=== PATIENT | male | born 1970 | race Caucasian/White ===

== ENCOUNTER 2017-09-11 07:46 | Emergency (ER) | payer BC, OTHER ==
[2017-09-11] MEDS ORDERED: Sodium Chloride 0.9% 10 ML Syringe FLUSH PRN ×2 (08:20→08:39)
[2017-09-11] MEDS ORDERED: Albuterol/Ipratropium 3.0-0.5 MG/3 ML Neb Soln NEB ONE (08:21)
[2017-09-11] MEDS ORDERED: Codeine/Promethazine 10-6.25 MG/5 ML Syrup 5 ML UD Cup PO ONE (08:22)
[2017-09-11] MEDS ORDERED: Iopamidol 755 Mg/ML 100 ML Bottle IVPUSH ONE (08:39)
[2017-09-11] MEDS ORDERED: Iopamidol 755 MG/ML 50 ML Bottle IVPUSH ONE (08:39)
[2017-09-11] MEDS ORDERED: Sodium Chloride 0.9% 100 ML IV SCH (08:45)
[2017-09-11] MEDS ORDERED: HYDROmorphone 0.5 MG/0.5 ML Syringe IVPUSH ONE (08:55)
--- NOTE | 2017-09-11 09:04 | EDM.PDOC ---
ED HPI GENERAL MEDICAL PROBLEM - General Chief Complaint: Respiratory Problem Stated Complaint: SOB,COUGHING UP BLOOD Time Seen by Provider: 09/11/17 08:03 Source of Information: Reports: Patient History Limitations: Reports: No Limitations - History of Present Illness INITIAL COMMENTS - FREE TEXT/NARRATIVE: The patient presents with a cough and chest pain. He says this all started on Monday after he was sanding dry wall. He started coughing and now he is coughing up blood in his sputum. He also has a fever and chills. He also has pain to his lower chest and upper abdomen. Coughing makes it worse. He denies pain or edema in his legs. He has no history of DVT or PE. He does have a history of bronchitis as a child and he will get pneumonia at lest 2 times per year. He has no history of asthma or COPD. The patient does not smoke. He has shortness of breath. Onset: Gradual Duration: Day(s): (3) Location: Reports: Chest Quality: Reports: Pressure (and tightness) Severity: Severe Improves with: Reports: Immobilization Worsens with: Reports: Breathing (and coughing) Context: Reports: Activity (This started after sanding drywall) Associated Symptoms: Reports: Chest Pain, Cough, cough w sputum, Fever/Chills, Shortness of Breath. Denies: Nausea/Vomiting Bilateral Chest Pain Score (Numeric/FACES): 7 - Related Data Allergies Allergy/AdvReac Type Severity Reaction Status Date / Time lisinopril Allergy Tachycardia Verified 09/11/17 07:54 metoclopramide [From Reglan] Allergy Anxiety Verified 09/11/17 07:54 Home Meds: Home Meds ALPRAZolam [Xanax] 0.5 mg PO BID 09/11/17 [History] Albuterol [Proair HFA] 2 puff INH Q6H PRN 09/11/17 [History] Codeine/Promethazine [Phenergan with Codeine] 5 - 10 ml PO Q6HR PRN #240 ml [Rx] Hydrocodone/Acetaminophen [Hydrocodon-Acetaminophen 5-325] 1 - 2 each PO Q6HR PRN #10 tablet 09/11/17 [Rx] Insulin Aspart [NovoLOG] 5 unit SQ TID PRN 09/11/17 [History] Metoprolol Succinate [Toprol XL] 25 mg PO DAILY 09/11/17 [History] Omeprazole 20 mg PO DAILY 09/11/17 [History] Oseltamivir [Tamiflu] 75 mg PO BID #10 cap 09/11/17 [Rx] Past Medical History - Past Health History Medical/Surgical History: Denies Medical/Surgical History HEENT History: Reports: Impaired Vision Other HEENT History: wears eyeglasses Cardiovascular History: Reports: High Cholesterol, Hypertension Respiratory History: Reports: Bronchitis, Recurrent, Pneumonia, Recurrent Gastrointestinal History: Reports: GERD Genitourinary History: Reports: Renal Calculus Musculoskeletal History: Reports: Back Pain, Chronic Other Musculoskeletal History: herniated disc, disc removed from neck Neurological History: Reports: Concussion, Head Trauma, Migraines Other Neuro History: x5, and skull fx Psychiatric History: Reports: Anxiety Endocrine/Metabolic History: Reports: Diabetes, Type II Other Endocrine/Metabolic History: borderline diabetic - Past Surgical History HEENT Surgical History: Reports: Tonsillectomy GI Surgical History: Reports: Colonoscopy, EGD, Hernia, Inguinal, Hernia Repair/ Other, Other (See Below) Other GI Surgeries/Procedures: polyps removed. Neurological Surgical History: Reports: Discectomy Social & Family History - Tobacco Use Smoking Status *Q: Never Smoker Years of Tobacco use: 27 Second Hand Smoke Exposure: No - Caffeine Use Caffeine Use: Reports: Soda - Recreational Drug Use Recreational Drug Use: No - Living Situation & Occupation Living situation: Reports: , with Family Occupation: Employed ED ROS GENERAL - Review of Systems Review Of Systems: See Below Constitutional: Reports: Fever, Chills, Malaise, Weakness, Fatigue HEENT: Reports: No Symptoms Respiratory: Reports: Shortness of Breath, Cough, Sputum Cardiovascular: Reports: Chest Pain Endocrine: Reports: No Symptoms GI/Abdominal: Reports: No Symptoms : Reports: No Symptoms Musculoskeletal: Reports: No Symptoms ED EXAM, GENERAL - Physical Exam Exam: See Below Exam Limited By: No Limitations General Appearance: Alert, No Apparent Distress Ears: Normal External Exam Nose: Normal Inspection Head: Atraumatic, Normocephalic Neck: Normal Inspection Respiratory/Chest: No Respiratory Distress, Wheezing (Mild) Cardiovascular: Regular Rate, Rhythm, No Edema, No Murmur GI/Abdominal: Soft, Non-Tender, No Organomegaly, No Mass Back Exam: Normal Inspection Extremities: Normal Inspection Neurological: Alert, Oriented, No Motor/Sensory Deficits Skin Exam: Warm, Dry EKG INTERPRETATION EKG Date: 09/11/17 Time: 07:58 Rhythm: NSR Rate (Beats/Min): 90 [place]: Normal P-Wave: Present QRS: Normal ST-T: Elevated (Normal early repol) QT: Normal Course - Vital Signs Last Recorded V/S: Last Vital Signs Temp 97.1 F 09/11/17 07:46 Pulse 96 09/11/17 07:46 Resp 20 09/11/17 07:46 BP 174/116 H 09/11/17 07:46 Pulse Ox 99 09/11/17 08:20 - Orders/Labs/Meds Orders: Active Orders 24 hr Category Date Time Status Cardiac Monitoring [RC] . DIRECTED Care 09/11/17 08:20 Active EKG Documentation Completion [RC] STAT Care 09/11/17 08:21 Active Oxygen Therapy [RC] PRN Care 09/11/17 08:20 Active Peripheral IV Care [RC] . DIRECTED Care 09/11/17 08:21 Active RT Aerosol Therapy [RC] ASDIRECTED Care 09/11/17 08:22 Active CULTURE SPUTUM + SMEAR [RM] Stat Lab 09/11/17 08:05 Received Sodium Chloride 0.9% [Normal Saline] 100 ml Med 09/11/17 08:45 Active IV ASDIRECTED Sodium Chloride 0.9% [Saline Flush] Med 09/11/17 08:20 Active 10 ml FLUSH ASDIRECTED PRN Sodium Chloride 0.9% [Saline Flush] Med 09/11/17 08:39 Active 10 ml FLUSH ONETIME PRN Peripheral IV Insertion Adult [OM.PC] Stat Oth 09/11/17 08:20 Ordered Medication Orders Sodium Chloride (Normal Saline) 100 mls @ 75 mls/hr IV ASDIRECTED LAURA Last Admin: 09/11/17 08:58 Dose: 75 mls/hr Sodium Chloride (Saline Flush) 10 ml FLUSH ASDIRECTED PRN PRN Reason: Keep Vein Open Last Admin: 09/11/17 07:56 Dose: 10 ml Sodium Chloride (Saline Flush) 10 ml FLUSH ONETIME PRN PRN Reason: IV FLUSH Last Admin: 09/11/17 08:58 Dose: 10 ml Labs: Laboratory Tests 09/11/17 09/11/17 Range/Units 07:56 07:56 WBC 3.98 L (4.23-9.07) K/mm3 RBC 5.65 (4.63-6.08) M/mm3 Hgb 17.0 (13.7-17.5) gm/L Hct 50.2 (40.1-51.0) % MCV 88.8 (79.0-92.2) fl MCH 30.1 (25.7-32.2) pg MCHC 33.9 (32.2-35.5) g/dl RDW Std Deviation 42.2 (35.1-43.9) fL Plt Count 265 (163-337) K/mm3 MPV 10.1 (9.4-12.3) fl Neut % (Auto) 38.1 (34.0-67.9) % Lymph % (Auto) 40.5 (21.8-53.1) % [place] % (Auto) 16.8 H (5.3-12.2) % Eos % (Auto) 3.8 (0.8-7.0) Baso % (Auto) 0.5 (0.1-1.2) % Neut # (Auto) 1.52 L (1.78-5.38) K/mm3 Lymph # (Auto) 1.61 (1.32-3.57) K/mm3 [place] # (Auto) 0.67 (0.30-0.82) K/mm3 Eos # (Auto) 0.15 (0.04-0.54) K/mm3 Baso # (Auto) 0.02 (0.01-0.08) K/mm3 Manual Slide Review Normal smear Sodium 140 (136-145) mEq/L Potassium 4.2 (3.5-5.1) mEq/L Chloride 104 (98-107) mEq/L Carbon Dioxide 24 (21-32) mEq/L Anion Gap 16.2 H (5-15) BUN 6 L (7-18) mg/dL Creatinine 0.9 (0.7-1.3) mg/dL Est Cr Clr Drug Dosing 108.15 mL/min Estimated GFR (MDRD) > 60 (>60) mL/min BUN/Creatinine Ratio 6.7 L (14-18) Glucose 176 H (74-106) mg/dL Calcium 8.7 (8.5-10.1) mg/dL Total Bilirubin 0.3 (0.2-1.0) mg/dL AST 29 (15-37) U/L ALT 49 (16-63) U/L Alkaline Phosphatase 99 (46-116) U/L Troponin I < 0.017 (0.00-0.056) ng/mL Total Protein 7.3 (6.4-8.2) g/dl Albumin 3.6 (3.4-5.0) g/dl Globulin 3.7 gm/dL Albumin/Globulin Ratio 1.0 (1-2) Meds: Medications Generic Name Dose Route Start Last Admin Trade Name Freq PRN Reason Stop Dose Admin Sodium Chloride 100 mls @ 75 mls/hr 09/11/17 08:45 09/11/17 08:58 Normal Saline IV 75 mls/hr ASDIRECTED LAURA Administration Sodium Chloride 10 ml 09/11/17 08:20 09/11/17 07:56 Saline Flush FLUSH 10 ml ASDIRECTED PRN Administration Keep Vein Open Sodium Chloride 10 ml 09/11/17 08:39 09/11/17 08:58 Saline Flush FLUSH 10 ml ONETIME PRN Administration IV FLUSH Discontinued Medications Generic Name Dose Route Start Last Admin Trade Name Freq PRN Reason Stop Dose Admin Albuterol/Ipratropium 3 ml 09/11/17 08:21 Duoneb 3.0-0.5 Mg/3 Ml NEB 09/11/17 08:22 ONETIME ONE Hydromorphone HCl 0.5 mg 09/11/17 08:55 09/11/17 09:05 Dilaudid IVPUSH 09/11/17 08:56 0.5 mg ONETIME ONE Administration Iopamidol 50 ml 09/11/17 08:39 09/11/17 09:05 Isovue-370 (76%) IVPUSH 09/11/17 08:40 50 ml ONETIME ONE Administration Iopamidol 100 ml 09/11/17 08:39 09/11/17 09:05 Isovue-370 (76%) IVPUSH 09/11/17 08:40 100 ml ONETIME ONE Administration Promethazine HCl/Codeine 10 ml 09/11/17 08:22 09/11/17 08:30 Phenergan With Codeine PO 09/11/17 08:23 10 ml ONETIME ONE Administration - Re-Assessments/Exams Free Text/Narrative Re-Assessment/Exam: 09/11/17 09:05 I ordered an IV saline lock, chest CT, labs, EKG, duoneb and phenergan with codeine for the cough. His EKG shows a NSR with normal early repol. The phenergan with codeine did not help his chest pain so I ordered some dilaudid 0.5mg IV. 09/11/17 09:59 His CBC and CMP look good. His troponin is negative. His CT shows slightly less than optimal opacification of the pulmonary arteries. No pulmonary embolism is seen within the main or segmental branches. Smaller subsegmental pulmonary emboli could be missed. Fatty infiltration within the liver. No additional abnormality is appreciated. He feels better. I will get him on some tamiflu and phenergan with codeine. I will discharge him home. Departure - Departure Time of Disposition: 10:05 Disposition: Home, Self-Care 01 Condition: Good Clinical Impression: Chest wall pain, Influenza A - Discharge Information Prescriptions: Codeine/Promethazine [Phenergan with Codeine] 5 - 10 ml PO Q6HR PRN #240 ml PRN Reason: Cough Hydrocodone/Acetaminophen [Hydrocodon-Acetaminophen 5-325] 1 - 2 each PO Q6HR PRN #10 tablet PRN Reason: Pain Oseltamivir [Tamiflu] 75 mg PO BID #10 cap Referrals: Marcos Roque Jr, MD [Primary Care Provider] - 1 Week Forms: ED Department Discharge Additional Instructions: Get some rest today. Take the tamiflu 2 times per day for 5 days. Use the phenergan with codeine for the cough. You can have 10mls every 6 hours. Take the hydrocodone as needed for the chest pain. Please return if you are worse. - My Orders Last 24 Hours: My Active Orders 09/11/17 08:05 CULTURE SPUTUM + SMEAR [RM] Stat 09/11/17 08:20 Cardiac Monitoring [RC] . DIRECTED Oxygen Therapy [RC] PRN Sodium Chloride 0.9% [Saline Flush] 10 ml FLUSH ASDIRECTED PRN Peripheral IV Insertion Adult [OM.PC] Stat 09/11/17 08:21 EKG Documentation Completion [RC] STAT Peripheral IV Care [RC] . DIRECTED 09/11/17 08:22 RT Aerosol Therapy [RC] ASDIRECTED 09/11/17 08:39 Sodium Chloride 0.9% [Saline Flush] 10 ml FLUSH ONETIME PRN 09/11/17 08:45 Sodium Chloride 0.9% [Normal Saline] 100 ml IV ASDIRECTED - Assessment/Plan Last 24 Hours: My Active Orders 09/11/17 08:05 CULTURE SPUTUM + SMEAR [RM] Stat 09/11/17 08:20 Cardiac Monitoring [RC] . DIRECTED Oxygen Therapy [RC] PRN Sodium Chloride 0.9% [Saline Flush] 10 ml FLUSH ASDIRECTED PRN Peripheral IV Insertion Adult [OM.PC] Stat 09/11/17 08:21 EKG Documentation Completion [RC] STAT Peripheral IV Care [RC] . DIRECTED 09/11/17 08:22 RT Aerosol Therapy [RC] ASDIRECTED 09/11/17 08:39 Sodium Chloride 0.9% [Saline Flush] 10 ml FLUSH ONETIME PRN 09/11/17 08:45 Sodium Chloride 0.9% [Normal Saline] 100 ml IV ASDIRECTED
--- NOTE | 2017-09-11 09:22 | CT ---
CT chest Technique: Multiple axial sections through the chest were obtained. Intravenous contrast was utilized. Study performed as a pulmonary angiogram protocol. Findings: Opacification of the pulmonary arteries not optimal. No filling defects are seen within the main or segmental branches. Smaller subsegmental pulmonary emboli could be missed. Mediastinum and hilar regions are unremarkable. No coronary artery calcification is seen. No pericardial thickening is identified. Diffuse fatty infiltration is noted within the liver. Lungs are clear. No pleural effusions are seen. Bone window settings were reviewed which appear within normal limits. Impression: 1. Slightly less than optimal opacification of the pulmonary arteries. No pulmonary embolism is seen within the main or segmental branches. Smaller subsegmental pulmonary emboli could be missed. 2. Fatty infiltration within the liver. No additional abnormality is appreciated. Diagnostic code #2
[2017-09-11 10:23] VITALS: BP 132/91
== END 2017-09-11 10:19 | disposition home or self-care (01) ==
LOC: JD.ED 07:46
DX: J10.1 Influenza due to other identified influenza virus with other respiratory manifestations (principal); R07.89 Other chest pain; I10 Essential (primary) hypertension; E78.00 Pure hypercholesterolemia, unspecified; K21.9 Gastro-esophageal reflux disease without esophagitis; F41.9 Anxiety disorder, unspecified; E11.9 Type 2 diabetes mellitus without complications; Z79.4 Long term (current) use of insulin; Z79.899 Other long term (current) drug therapy; Z88.8 Allergy status to other drugs, medicaments and biological substances
CPT/HCPCS: 36415; 71275; 80053; 84484; 85025; 87070; 87205; 87804; 93005; 94640; 96374; 99285; A9270; J1170; J7030; J7050; Q9967; 87077; 87181; 87184; 93010; 99284

== ENCOUNTER 2017-10-27 22:14 | Emergency (ER) | payer OTHER ==
[2017-10-27] MEDS ORDERED: Sodium Chloride 0.9% 10 ML Syringe FLUSH PRN ×2 (22:59→23:27)
[2017-10-27] MEDS ORDERED: Labetalol 100 MG/20 ML MDV IVPUSH ONE (23:03)
[2017-10-27] MEDS ORDERED: Ondansetron 4 MG/2 ML SDV IVPUSH ONE (23:03)
[2017-10-27 23:26] VITALS: BP 146/106
[2017-10-27] MEDS ORDERED: Iopamidol 755 Mg/ML 100 ML Bottle IVPUSH ONE (23:27)
[2017-10-27] MEDS ORDERED: Sodium Chloride 0.9% 100 ML IV SCH (23:30)
[2017-10-28] MEDS ORDERED: Ketorolac 30 MG/ML SDV IVPUSH ONE (00:21)
--- NOTE | 2017-10-28 00:28 | EDM.PDOC ---
ED HPI GENERAL MEDICAL PROBLEM - General Chief Complaint: Chest Pain Stated Complaint: CHEST AND HEAD PAIN Time Seen by Provider: 10/27/17 22:23 Source of Information: Reports: Patient History Limitations: Reports: No Limitations - History of Present Illness INITIAL COMMENTS - FREE TEXT/NARRATIVE: 46-year-old male presents to the ER via private vehicle for multiple different complaints. Patient is mostly complaining of a headache and neck pain. He states that this started suddenly around 2100 this evening. He states for the last month he has been working with his physician due to elevated blood pressures and headaches. He states that his physician has been concerned that he has an aneurysm. He has not had any imaging of his head done to rule out aneurysm. Complain of pain behind his eyes and his neck. patient reports he has been aneurysm in the past. However, what he describes occurred in [place]; we have no record of this. He states that after he had surgery for cervical spine problems you was what sounds in the ER and had lumbar puncture done. After that he was subsequently discharged. Does not some acute had any coiling or any surgery to his brain. Patient reports associated symptoms of lightheadedness, nausea and photophobia. He also states that he has double vision and blurry vision. No vomiting. Blood pressure at home prior to arrival in the ER was 170s over 120s. Patient also complains of some left-sided chest pain. This occurred earlier in the evening. States he last about 10 minutes. He is currently chest pain-free. States his shortness of breath earlier but this also resolved. Patient is present. she also is concerned as he had some "memory "earlier. She describes several situations where he forgot the name of his child or forgot that she had come home from work early to be with him. Patient reports that he has had migraines in the past. He has seen neurology in the past and had an EEG done. No abnormalities for his migraines have been found. Patient denies any recent cough or cold symptoms. No sore throat, ear pain is or fevers. Headache Pain Score (Numeric/FACES): 8 - Related Data Allergies Allergy/AdvReac Type Severity Reaction Status Date / Time lisinopril AdvReac Tachycardia Verified 10/31/17 11:22 metoclopramide [From Reglan] AdvReac Anxiety Verified 10/31/17 11:22 Home Meds: Home Meds ALPRAZolam [Xanax] 0.5 mg PO BID 09/11/17 [History] Albuterol [Proair HFA] 2 puff INH Q6H PRN 09/11/17 [History] Codeine/Promethazine [Phenergan with Codeine] 5 - 10 ml PO Q6HR PRN #240 ml [Rx] Hydrocodone/Acetaminophen [Hydrocodon-Acetaminophen 5-325] 1 - 2 each PO Q6HR PRN #10 tablet 09/11/17 [Rx] Insulin Aspart [NovoLOG] 5 unit SQ TID PRN 09/11/17 [History] Metoprolol Succinate [Toprol XL] 25 mg PO DAILY 09/11/17 [History] Omeprazole 20 mg PO DAILY 09/11/17 [History] Oseltamivir [Tamiflu] 75 mg PO BID #10 cap 09/11/17 [Rx] Past Medical History - Past Health History Medical/Surgical History: Denies Medical/Surgical History HEENT History: Reports: Impaired Vision Other HEENT History: wears eyeglasses Cardiovascular History: Reports: High Cholesterol, Hypertension Respiratory History: Reports: Bronchitis, Recurrent, Pneumonia, Recurrent Gastrointestinal History: Reports: GERD Genitourinary History: Reports: Renal Calculus Musculoskeletal History: Reports: Back Pain, Chronic Other Musculoskeletal History: herniated disc, disc removed from neck Neurological History: Reports: Concussion, Head Trauma, Migraines Other Neuro History: x5, and skull fx Psychiatric History: Reports: Anxiety Endocrine/Metabolic History: Reports: Diabetes, Type II Other Endocrine/Metabolic History: borderline diabetic - Past Surgical History HEENT Surgical History: Reports: Tonsillectomy GI Surgical History: Reports: Colonoscopy, EGD, Hernia, Inguinal, Hernia Repair/ Other, Other (See Below) Other GI Surgeries/Procedures: polyps removed. Neurological Surgical History: Reports: Discectomy Social & Family History - Family History Cardiac: Reports: Hypertension Neurological: Reports: CVA - Tobacco Use Smoking Status *Q: Light Tobacco Smoker Years of Tobacco use: 20 Packs/Tins Daily: 0.1 Second Hand Smoke Exposure: No - Caffeine Use Caffeine Use: Reports: Soda - Recreational Drug Use Recreational Drug Use: No - Living Situation & Occupation Living situation: Reports: , with Family Occupation: Employed ED ROS GENERAL - Review of Systems Review Of Systems: See Below Constitutional: Denies: Fever HEENT: Reports: Vision Change (reports blurry vision and double vision), Other ( reports photophobia). Denies: Ear Pain, Throat Pain Respiratory: Denies: Shortness of Breath Cardiovascular: Reports: Chest Pain (ealier, none now), Lightheadedness GI/Abdominal: Reports: Nausea. Denies: Vomiting Musculoskeletal: Reports: Neck Pain Neurological: Reports: Headache. Denies: Syncope - Physical Exam Exam: See Below Exam Limited By: No Limitations General Appearance: Alert, WD/WN, Mild Distress Eye Exam: Bilateral Eye: EOMI, Normal Inspection, PERRL Ears: Normal External Exam, Normal Canal, Hearing Grossly Normal, Normal TMs Nose: Normal Inspection Throat/Mouth: Normal Inspection, Normal Lips, Normal Voice, No Airway Compromise Head Exam: Atraumatic, Normocephalic Neck: Normal Inspection, Non-Tender, Full Range of Motion Respiratory/Chest: No Respiratory Distress, Lungs Clear, Normal Breath Sounds Cardiovascular: Normal Peripheral Pulses, Regular Rate, Rhythm, No Murmur GI/Abdominal: Normal Bowel Sounds, Soft, Non-Tender Neuro Exam (Abbreviated): Alert, Oriented, CN II-XII Intact, Normal Cognition Psychiatric: Normal Affect, Normal Mood Skin Exam: Warm, Normal Color EKG INTERPRETATION EKG Date: 10/27/17 Time: 22:20 Rate (Beats/Min): 111 [place]: Normal P-Wave: Present QRS: Normal ST-T: Normal QT: Normal EKG Interpretation Comments: sinus tachycardia at 111. No acute ST changes. Reviewed by myself and Dr. Escobedo. Course - Vital Signs Last Recorded V/S: Last Vital Signs Temp 36.1 C 10/27/17 22:19 Pulse 107 H 10/27/17 23:20 Resp 22 H 10/27/17 22:19 BP 146/106 H 10/27/17 23:20 Pulse Ox 96 10/27/17 22:19 - Orders/Labs/Meds Labs: Laboratory Tests 10/27/17 10/27/17 10/27/17 Range/Units 22:35 22:35 23:02 WBC 9.39 H (4.23-9.07) K/mm3 RBC 5.67 (4.63-6.08) M/mm3 Hgb 16.0 (13.7-17.5) gm/L Hct 47.5 (40.1-51.0) % MCV 83.8 (79.0-92.2) fl MCH 28.2 (25.7-32.2) pg MCHC 33.7 (32.2-35.5) g/dl RDW Std Deviation 37.7 (35.1-43.9) fL Plt Count 364 H (163-337) K/mm3 MPV 10.1 (9.4-12.3) fl Neut % (Auto) 57.3 (34.0-67.9) % Lymph % (Auto) 36.0 (21.8-53.1) % [place] % (Auto) 5.6 (5.3-12.2) % Eos % (Auto) 0.6 L (0.8-7.0) Baso % (Auto) 0.3 (0.1-1.2) % Neut # (Auto) 5.37 (1.78-5.38) K/mm3 Lymph # (Auto) 3.38 (1.32-3.57) K/mm3 [place] # (Auto) 0.53 (0.30-0.82) K/mm3 Eos # (Auto) 0.06 (0.04-0.54) K/mm3 Baso # (Auto) 0.03 (0.01-0.08) K/mm3 Manual Slide Review Normal smear Sodium 138 (136-145) mEq/L Potassium 3.7 (3.5-5.1) mEq/L Chloride 100 (98-107) mEq/L Carbon Dioxide 23 (21-32) mEq/L Anion Gap 18.7 H (5-15) BUN 9 (7-18) mg/dL Creatinine 0.7 (0.7-1.3) mg/dL Est Cr Clr Drug Dosing 139.05 mL/min Estimated GFR (MDRD) > 60 (>60) mL/min BUN/Creatinine Ratio 12.9 L (14-18) Glucose 188 H (74-106) mg/dL Calcium 9.2 (8.5-10.1) mg/dL Total Bilirubin 0.3 (0.2-1.0) mg/dL AST TNP ALT TNP Alkaline Phosphatase 112 (46-116) U/L Troponin I < 0.017 (0.00-0.056) ng/mL Total Protein 8.1 (6.4-8.2) g/dl Albumin 4.3 (3.4-5.0) g/dl Globulin 3.8 gm/dL Albumin/Globulin Ratio 1.1 (1-2) Urine Color Light yellow (Yellow) Urine Appearance Clear (Clear) Urine pH 6.0 (5.0-8.0) Ur Specific [place] 1.010 (1.005-1.030) Urine Protein Negative (Negative) Urine Glucose (UA) Negative (Negative) Urine Ketones Negative (Negative) Urine Occult Blood Negative (Negative) Urine Nitrite Negative (Negative) Urine Bilirubin Negative (Negative) Urine Urobilinogen 0.2 (0.2-1.0) Ur Leukocyte Esterase Negative (Negative) Urine RBC 0-5 (0-5) /hpf Urine WBC 0-5 (0-5) /hpf Ur Epithelial Cells 0-5 (0-5) /hpf Urine Bacteria Rare (FEW) /hpf Urine Mucus Not seen (FEW) /hpf Ethyl Alcohol 0.19 (0.00) gm% Meds: Medications Discontinued Medications Generic Name Dose Route Start Last Admin Trade Name Freq PRN Reason Stop Dose Admin Sodium Chloride 100 mls @ 75 mls/hr 10/27/17 23:30 10/27/17 23:47 Normal Saline IV 75 mls/hr ASDIRECTED LAURA Administration Sodium Chloride 500 mls @ 999 mls/hr 10/28/17 00:52 Normal Saline IV 10/28/17 01:22 ONETIME ONE Iopamidol 100 ml 10/27/17 23:27 10/27/17 23:47 Isovue-370 (76%) IVPUSH 10/27/17 23:28 100 ml ONETIME ONE Administration Ketorolac Tromethamine 30 mg 10/28/17 00:21 10/28/17 00:28 Toradol IVPUSH 10/28/17 00:22 30 mg ONETIME ONE Administration Labetalol HCl 20 mg 10/27/17 23:03 10/27/17 23:20 Normodyne IVPUSH 10/27/17 23:04 4 ml ONETIME ONE Administration Protocol Ondansetron HCl 4 mg 10/27/17 23:03 10/27/17 23:15 Zofran IVPUSH 10/27/17 23:04 4 mg ONETIME ONE Administration Sodium Chloride 10 ml 10/27/17 22:59 10/27/17 23:14 Saline Flush FLUSH 10 ml ASDIRECTED PRN Administration Keep Vein Open Sodium Chloride 10 ml 10/27/17 23:27 10/27/17 23:47 Saline Flush FLUSH 10 ml ONETIME PRN Administration IV FLUSH - Radiology Interpretation Free Text/Narrative:: CT of the head without contrast impression per the rad normal head brain CT. CTA of the head with IV contrast impression per the rad normal head CT. portable chest xray shows no acute intrathoracic process. - Re-Assessments/Exams Free Text/Narrative Re-Assessment/Exam: 10/28/17 00:56 I gave the patient some labetalol upon arrival to the ER as I was concerned that it was his blood pressure was what causing the headaches. His blood pressure has come down nicely and is now in the 140s systolic. I reviewed the labs and imaging with the patient. I did order him some Toradol about 20-[address] returned normal. Nursing staff informed me that they were given in the Toradol he commented about how portal never works for him and he will require something stronger. I feel the patient likely has a migraine that was precipitated by his alcohol use tonight. Plan was to follow migraine headache protocol. I asked him how much had to drink as his alcohol is 0.19. I informed him that we do give him some fluids and continue to work on this headache. After I left the room patient apparently pulled out his IV and stormed out of the ER. He did not sign AMA paperwork. He has eloped. 10/28/17 00:59 After the patient eloped I did search him on [place] prescription drug registry. He has received 19 prescription from through different prescribers for controlled substances within the last year. Most recently he received 30 Percocet 10-325 on 10-17-17. Departure - Departure Time of Disposition: 00:57 Disposition: Eloped 07 Condition: Undetermined Clinical Impression: Headache - Discharge Information Referrals: Marcos Roque Jr, MD [Primary Care Provider] - Forms: ED Department Discharge Additional Instructions: Patient eloped. Undetermined condition.
[2017-10-28] MEDS ORDERED: Sodium Chloride 0.9% 500 ML IV ONE (00:52)
--- NOTE | 2017-10-28 14:23 | CR ---
Chest: Portable view of the chest was obtained. Comparison: Previous chest x-ray dated 01/30/16. Heart size and mediastinum are normal. Lungs are clear. Previous cervical spine surgery is noted. Impression: 1. Nothing acute is identified on portable chest x-ray. Diagnostic code #2
--- NOTE | 2017-10-28 14:25 | CT ---
CT brain Technique: Multiple axial sections were obtained through the brain. Intravenous contrast was utilized. Multiple MIP images were obtained. Comparison: No prior angiogram of brain Findings: Distal internal carotid arteries are patent. Normal appearance of the middle cerebral artery and anterior cerebral arteries are seen. There is some venous contamination noted. Left vertebral artery is dominant over a smaller right vertebral artery as an incidental note. Proximal posterior cerebral arteries are within normal limits. No discrete aneurysm is seen. No occlusion or stenosis is seen. Impression: 1. No abnormality appreciated on CT angiogram of the brain. MR angiogram could be obtained to further evaluate for aneurysm if clinically needed. Diagnostic code #1 I agree with preliminary report issued by [facility] ([facility] report finalized on 10/28/17, 1:21 AM Central Time)
--- NOTE | 2017-10-28 14:25 | CT ---
Head CT Technique: Multiple axial sections through the brain were obtained. Intravenous contrast was not utilized. Comparison: Prior head CT study of 01/30/16. Findings: Ventricles along with basal cisterns and sulci over the convexities are within normal limits for the patient's age. No abnormal parenchymal densities are seen. No evidence of intracranial hemorrhage. No midline shift or mass effect is seen. Bone window settings were reviewed which show no acute calvarial abnormality. Visualized sinuses are clear. Impression: 1. Nothing acute is identified on noncontrast head CT study. Diagnostic code #1 I agree with preliminary report issued by [facility] ([facility] report finalized on 10/28/17, 1:16 AM Central Time)
== END 2017-10-28 00:50 | disposition left against medical advice (07) ==
LOC: JD.ED 22:14
DX: R51 Headache (principal); K21.9 Gastro-esophageal reflux disease without esophagitis; I10 Essential (primary) hypertension; E11.9 Type 2 diabetes mellitus without complications; F17.210 Nicotine dependence, cigarettes, uncomplicated; Z88.8 Allergy status to other drugs, medicaments and biological substances; Z79.899 Other long term (current) drug therapy; Z79.4 Long term (current) use of insulin
CPT/HCPCS: 36415; 70450; 70496; 71045; 80053; 81001; 84484; 85025; 93005; 96374; 96375; 99285; G0480; J1885; J2405; J7030; J7050; Q9967; 93010; 99284

== ENCOUNTER 2018-09-12 12:49 | Emergency (ER) | payer OTHER ==
[2018-09-12] MEDS ORDERED: Albuterol/Ipratropium 3.0-0.5 MG/3 ML Neb Soln NEB ONE ×2 (13:12→14:56)
[2018-09-12] MEDS ORDERED: predniSONE 20 MG Tab PO ONE (13:13)
--- NOTE | 2018-09-12 14:55 | CR ---
Chest: Two views of the chest were obtained. Comparison: Prior chest x-ray of 08/29/18. Heart size and mediastinum are normal. Mild bronchial wall thickening is seen within the perihilar markings on both sides. Lungs otherwise are clear with no acute parenchymal change. Bony structures are unremarkable. Previous cervical spine surgery is noted. Impression: 1. Findings compatible with bronchitis. Diagnostic code #3
[2018-09-12] MEDS ORDERED: Codeine/Promethazine 10-6.25 MG/5 ML Syrup 5 ML UD Cup PO ONE (14:57)
--- NOTE | 2018-09-12 16:05 | EDM.PDOC ---
ED HPI GENERAL MEDICAL PROBLEM - General Chief Complaint: Respiratory Problem Stated Complaint: COUGH RECENT BRONCHITIS DIAGNOSIS GETTING WORSE Time Seen by Provider: 09/12/18 13:07 Source of Information: Reports: Patient History Limitations: Reports: No Limitations - History of Present Illness INITIAL COMMENTS - FREE TEXT/NARRATIVE: The patient presents with a cough and shortness of breath. This has been going on for about 5 weeks. He had a Z-edda, albuterol inhaler and phenergan with codeine for bronchitis versus early pneumonia. He has not gotten better. He has no fever but he is coughing through most of the day. He has wheezing. He has no asthma or COPD. 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 He does have some soreness in his chest and abdomen because of the cough. Onset: Gradual Duration: Week(s): (5) Location: Reports: Chest, Abdomen Quality: Reports: Other (sore) Severity: Mild Improves with: Reports: Immobilization Worsens with: Reports: Breathing (and coughing) Associated Symptoms: Reports: Cough, cough w sputum, Shortness of Breath. Denies: Fever/Chills, Headaches, Nausea/Vomiting - Related Data Allergies Allergy/AdvReac Type Severity Reaction Status Date / Time lisinopril AdvReac Tachycardia Verified 09/12/18 13:04 metoclopramide [From Reglan] AdvReac Anxiety Verified 09/12/18 13:04 tramadol AdvReac Headache Verified 09/12/18 13:04 Home Meds: Home Meds ALPRAZolam [Xanax] 0.5 mg PO BID 09/11/17 [History] Insulin Aspart [NovoLOG] 60 unit SQ DAILY PRN 09/11/17 [History] Metoprolol Succinate [Toprol XL] 25 mg PO DAILY 09/11/17 [History] Dicyclomine [Bentyl] 20 mg PO QIDACANDBED PRN #30 tab 03/23/18 [Rx] Ranitidine [Zantac] 150 mg PO BID #60 tab 03/23/18 [Rx] Albuterol Sulfate 2.5 mg IH Q6HR PRN #20 ampule 09/12/18 [Rx] Codeine/Promethazine [Phenergan with Codeine] 10 - 15 ml PO Q6HR PRN #240 ml [Rx] Doxycycline [Vibramycin] 100 mg PO BID #20 cap 09/12/18 [Rx] Insulin Detemir [Levemir] 40 unit SQ BEDTIME 09/12/18 [History] predniSONE [Prednisone] 40 mg PO DAILY #10 tablet 09/12/18 [Rx] Past Medical History - Past Health History Medical/Surgical History: Denies Medical/Surgical History HEENT History: Reports: Impaired Vision Other HEENT History: wears eyeglasses Cardiovascular History: Reports: High Cholesterol, Hypertension Respiratory History: Reports: Bronchitis, Recurrent, Pneumonia, Recurrent Gastrointestinal History: Reports: GERD Genitourinary History: Reports: Renal Calculus Musculoskeletal History: Reports: Back Pain, Chronic Other Musculoskeletal History: herniated disc, disc removed from neck Neurological History: Reports: Concussion, Head Trauma, Migraines Other Neuro History: x5, and skull fx Psychiatric History: Reports: Anxiety Endocrine/Metabolic History: Reports: Diabetes, Type II Other Endocrine/Metabolic History: borderline diabetic - Past Surgical History HEENT Surgical History: Reports: Tonsillectomy GI Surgical History: Reports: Colonoscopy, EGD, Hernia, Inguinal, Hernia Repair/ Other, Other (See Below) Other GI Surgeries/Procedures: polyps removed. Neurological Surgical History: Reports: Discectomy Social & Family History - Family History Cardiac: Reports: Hypertension Neurological: Reports: CVA - Tobacco Use Smoking Status *Q: Former Smoker Used Tobacco, but Quit: Yes Month/Year Tobacco Last Used: 10 years+ - Caffeine Use Caffeine Use: Reports: None Other Caffeine Use: mountain dew - Recreational Drug Use Recreational Drug Use: No - Living Situation & Occupation Living situation: Reports: , with Family Occupation: Employed ED ROS GENERAL - Review of Systems Review Of Systems: See Below Constitutional: Reports: No Symptoms HEENT: Reports: No Symptoms Respiratory: Reports: Shortness of Breath, Wheezing, Cough Cardiovascular: Reports: Chest Pain Endocrine: Reports: No Symptoms GI/Abdominal: Reports: Abdominal Pain : Reports: No Symptoms Musculoskeletal: Reports: No Symptoms ED EXAM, GENERAL - Physical Exam Exam: See Below Exam Limited By: No Limitations General Appearance: Alert, No Apparent Distress Ears: Normal External Exam Nose: Normal Inspection Head: Atraumatic, Normocephalic Neck: Normal Inspection Respiratory/Chest: No Respiratory Distress, Wheezing Cardiovascular: Regular Rate, Rhythm, No Edema, No Murmur GI/Abdominal: Soft, Non-Tender, No Organomegaly, No Mass Back Exam: Normal Inspection Extremities: Normal Inspection Course - Vital Signs Last Recorded V/S: Last Vital Signs Temp 97 F 09/12/18 13:01 Pulse 95 09/12/18 13:01 Resp 20 09/12/18 13:01 BP 154/114 H 09/12/18 13:08 Pulse Ox 99 09/12/18 15:06 - Orders/Labs/Meds Orders: Active Orders 24 hr Category Date Time Status Cardiac Monitoring [RC] . DIRECTED Care 09/12/18 13:11 Active RT Aerosol Therapy [RC] ASDIRECTED Care 09/12/18 13:13 Active RT Aerosol Therapy [RC] ASDIRECTED Care 09/12/18 14:57 Active Labs: Laboratory Tests 09/12/18 09/12/18 Range/Units 13:33 13:33 WBC 6.58 (4.23-9.07) K/mm3 RBC 5.38 (4.63-6.08) M/mm3 Hgb 16.4 (13.7-17.5) gm/L Hct 46.7 (40.1-51.0) % MCV 86.8 (79.0-92.2) fl MCH 30.5 (25.7-32.2) pg MCHC 35.1 (32.2-35.5) g/dl RDW Std Deviation 39.2 (35.1-43.9) fL Plt Count 316 (163-337) K/mm3 MPV 9.6 (9.4-12.3) fl Neut % (Auto) 54.3 (34.0-67.9) % Lymph % (Auto) 32.1 (21.8-53.1) % [place] % (Auto) 9.3 (5.3-12.2) % Eos % (Auto) 3.6 (0.8-7.0) Baso % (Auto) 0.5 (0.1-1.2) % Neut # (Auto) 3.58 (1.78-5.38) K/mm3 Lymph # (Auto) 2.11 (1.32-3.57) K/mm3 [place] # (Auto) 0.61 (0.30-0.82) K/mm3 Eos # (Auto) 0.24 (0.04-0.54) K/mm3 Baso # (Auto) 0.03 (0.01-0.08) K/mm3 Sodium 137 (136-145) mEq/L Potassium 3.9 (3.5-5.1) mEq/L Chloride 100 (98-107) mEq/L Carbon Dioxide 24 (21-32) mEq/L Anion Gap 16.9 H (5-15) BUN 9 (7-18) mg/dL Creatinine 0.9 (0.7-1.3) mg/dL Est Cr Clr Drug Dosing 107.02 mL/min Estimated GFR (MDRD) > 60 (>60) mL/min BUN/Creatinine Ratio 10.0 L (14-18) Glucose 92 (74-106) mg/dL Calcium 9.1 (8.5-10.1) mg/dL Total Bilirubin 0.6 (0.2-1.0) mg/dL AST 26 (15-37) U/L ALT 35 (16-63) U/L Alkaline Phosphatase 91 (46-116) U/L C-Reactive Protein 2.5 H* (<1.0) mg/dL Total Protein 7.7 (6.4-8.2) g/dl Albumin 3.9 (3.4-5.0) g/dl Globulin 3.8 gm/dL Albumin/Globulin Ratio 1.0 (1-2) Meds: Medications Discontinued Medications Generic Name Dose Route Start Last Admin Trade Name Freq PRN Reason Stop Dose Admin Albuterol/Ipratropium 3 ml 09/12/18 13:12 09/12/18 13:26 Duoneb 3.0-0.5 Mg/3 Ml NEB 09/12/18 13:13 3 ml ONETIME ONE Administration Albuterol/Ipratropium 3 ml 09/12/18 14:56 09/12/18 15:06 Duoneb 3.0-0.5 Mg/3 Ml NEB 09/12/18 14:57 3 ml ONETIME ONE Administration Prednisone 40 mg 09/12/18 13:13 09/12/18 13:24 Prednisone PO 09/12/18 13:14 40 mg ONETIME ONE Administration Promethazine HCl/Codeine 10 ml 09/12/18 14:57 09/12/18 15:29 Phenergan With Codeine PO 09/12/18 14:58 10 ml ONETIME ONE Administration - Re-Assessments/Exams Free Text/Narrative Re-Assessment/Exam: 09/12/18 16:11 I ordered a CXR, labs, perdnisone 40mg by mouth, duoneb, and labs. His CXR shows bronchitis. His CBC looks good. His anion gap was elevated at 16.9. His CRP was elevated at 2.5. He was still wheezing after the duoneb so I ordered another one. That did help. I feel he has more bronchitis. I will get him on some albuterol nebs, doxycycline, prednisone and phenergan with codeine Departure - Departure Time of Disposition: 16:20 Disposition: Home, Self-Care 01 Condition: Good Clinical Impression: Bronchitis Reactive airway disease Qualifiers: Asthma severity: moderate Asthma persistence: persistent Asthma complication type: with acute exacerbation Qualified Code(s): J45.41 - Moderate persistent asthma with (acute) exacerbation - Discharge Information *PRESCRIPTION DRUG MONITORING PROGRAM REVIEWED*: No *COPY OF PRESCRIPTION DRUG MONITORING REPORT IN PATIENT MEL: No Prescriptions: Albuterol Sulfate 2.5 mg IH Q6HR PRN #20 ampule PRN Reason: Wheezing Codeine/Promethazine [Phenergan with Codeine] 10 - 15 ml PO Q6HR PRN #240 ml PRN Reason: Cough Doxycycline [Vibramycin] 100 mg PO BID #20 cap predniSONE [Prednisone] 40 mg PO DAILY #10 tablet Referrals: Marcos Roque Jr, MD [Primary Care Provider] - 1 Week Forms: ED Department Discharge Additional Instructions: Take the doxycycline 2 times per day for 10 days. Use the albuterol neb every 6 hours as needed for wheezing. Use the phenergan with codeine 10 to 15 mls every 6 hours as needed for cough. Take prednisone 40mg daily. Please return if you are worse. - My Orders Last 24 Hours: My Active Orders 09/12/18 13:11 Cardiac Monitoring [RC] . DIRECTED 09/12/18 13:13 RT Aerosol Therapy [RC] ASDIRECTED 09/12/18 14:57 RT Aerosol Therapy [RC] ASDIRECTED - Assessment/Plan Last 24 Hours: My Active Orders 09/12/18 13:11 Cardiac Monitoring [RC] . DIRECTED 09/12/18 13:13 RT Aerosol Therapy [RC] ASDIRECTED 09/12/18 14:57 RT Aerosol Therapy [RC] ASDIRECTED
[2018-09-12 16:32] VITALS: BP 124/83
== END 2018-09-12 16:31 | disposition home or self-care (01) ==
LOC: JD.ED 12:49
DX: J45.41 Moderate persistent asthma with (acute) exacerbation (principal); E78.00 Pure hypercholesterolemia, unspecified; K21.9 Gastro-esophageal reflux disease without esophagitis; I10 Essential (primary) hypertension; F41.9 Anxiety disorder, unspecified; E11.9 Type 2 diabetes mellitus without complications; Z79.4 Long term (current) use of insulin; Z79.891 Long term (current) use of opiate analgesic; Z79.899 Other long term (current) drug therapy; Z87.891 Personal history of nicotine dependence; Z98.890 Other specified postprocedural states; Z88.5 Allergy status to narcotic agent; Z88.8 Allergy status to other drugs, medicaments and biological substances
CPT/HCPCS: 36415; 71046; 80053; 85025; 86140; 87804; 94640; 99284; A9270; J7620-GY

== ENCOUNTER 2018-09-30 12:27 | Emergency (ER) | payer OTHER ==
[2018-09-30] MEDS ORDERED: Morphine 2 MG/ML Syringe IVPUSH ONE (12:43)
[2018-09-30] MEDS ORDERED: Sodium Chloride 0.9% 10 ML Syringe FLUSH PRN (12:43)
[2018-09-30] MEDS ORDERED: Sodium Chloride 0.9% 1,000 ML IV ONE (12:43)
[2018-09-30] MEDS ORDERED: Alum Hydrox/Mag Hydrox/Simeth 30 ML, Lidocaine 2% 15 ML PO ONE ×2 (12:43)
[2018-09-30] MEDS ORDERED: Aspirin 81 MG Tab.Chew PO ONE (12:45)
[2018-09-30] MEDS: Nitroglycerin 0.4 MG Tab.SL SL PRN ×2 (12:56→13:05)
--- NOTE | 2018-09-30 12:57 | EDM.PDOC ---
ED HPI GENERAL MEDICAL PROBLEM - General Chief Complaint: Chest Pain Stated Complaint: chest pain high bp Time Seen by Provider: 09/30/18 12:32 Source of Information: Reports: Patient History Limitations: Reports: No Limitations - History of Present Illness INITIAL COMMENTS - FREE TEXT/NARRATIVE: Patient is a 47-year-old male who presents to the ED complaining of sudden onset of substernal chest pain that radiates into his left arm and neck that started approx one hour ago. Pain is described as a pressure sensation rated a 6 out of 10. Patient came nauseated, slightly dizzy, diaphoretic with onset. In addition ED complaining of left lateral chest discomfort described as a crampy sensation that waxes and wanes and comes on with intermittent sharpness for the past few weeks. He has no prior history of such. He is a type II diabetic on insulin with poorly controlled sugars. History of heart hypertriglyceridemia and hypertension that is not well controlled. He's had multiple testing obtained for his hypertension with no known reason. He is on Norvasc twice a day. He's had hypertension for 15 years. There is a first degree relative with heart disease dad data 70 required stents and bypass. Patient himself has no coronary disease and denies any smoking history. Alcohol use occasionally. Denies recreational drugs. Otherwise surgical history is noncontributory. Chest Pain Score (Numeric/FACES): 6 - Related Data Allergies Allergy/AdvReac Type Severity Reaction Status Date / Time lisinopril AdvReac Tachycardia Verified 09/30/18 12:44 metoclopramide [From Reglan] AdvReac Anxiety Verified 09/30/18 12:44 tramadol AdvReac Headache Verified 09/30/18 12:44 Home Meds: Home Meds ALPRAZolam [Xanax] 0.5 mg PO BID PRN 09/11/17 [History] Insulin Aspart [NovoLOG] 30 unit SQ DAILY PRN 09/11/17 [History] Ranitidine [Zantac] 150 mg PO BID #60 tab 03/23/18 [Rx] Insulin Detemir [Levemir] 40 unit SQ BEDTIME 09/12/18 [History] amLODIPine Besylate [Norvasc] 5 mg PO BID 09/30/18 [History] Past Medical History - Past Health History Medical/Surgical History: Denies Medical/Surgical History HEENT History: Reports: Impaired Vision Other HEENT History: wears eyeglasses Cardiovascular History: Reports: High Cholesterol, Hypertension Respiratory History: Reports: Bronchitis, Recurrent, Pneumonia, Recurrent Gastrointestinal History: Reports: GERD Genitourinary History: Reports: Renal Calculus Musculoskeletal History: Reports: Back Pain, Chronic Other Musculoskeletal History: herniated disc, disc removed from neck Neurological History: Reports: Concussion, Head Trauma, Migraines Other Neuro History: x5, and skull fx Psychiatric History: Reports: Anxiety Endocrine/Metabolic History: Reports: Diabetes, Type II Other Endocrine/Metabolic History: borderline diabetic - Past Surgical History HEENT Surgical History: Reports: Tonsillectomy GI Surgical History: Reports: Colonoscopy, EGD, Hernia, Inguinal, Hernia Repair/ Other, Other (See Below) Other GI Surgeries/Procedures: polyps removed. Neurological Surgical History: Reports: Discectomy Social & Family History - Family History Cardiac: Reports: Hypertension Neurological: Reports: CVA - Tobacco Use Smoking Status *Q: Former Smoker Used Tobacco, but Quit: Yes Month/Year Tobacco Last Used: 2011 Second Hand Smoke Exposure: No - Caffeine Use Caffeine Use: Reports: Soda Other Caffeine Use: [employer] dew - Recreational Drug Use Recreational Drug Use: No - Living Situation & Occupation Living situation: Reports: , with Family Occupation: Employed ED ROS GENERAL - Review of Systems Review Of Systems: ROS reveals no pertinent complaints other than HPI. ED EXAM, GENERAL - Physical Exam Exam: See Below Exam Limited By: No Limitations General Appearance: Alert, WD/WN, Anxious Eye Exam: Bilateral Eye: Normal Inspection Ears: Hearing Grossly Normal Nose: Normal Inspection Throat/Mouth: Normal Voice, No Airway Compromise Neck: Normal Inspection, Supple, Non-Tender, Full Range of Motion Respiratory/Chest: No Respiratory Distress, Lungs Clear, Normal Breath Sounds, No Accessory Muscle Use, Chest Non-Tender Cardiovascular: Normal Peripheral Pulses, No JVD, No Murmur, Tachycardia Peripheral Pulses: 2+: Radial (L), Radial (R), Posterior Tibial (L), Posterior Tibial (R) GI/Abdominal: Normal Bowel Sounds, Soft, Non-Tender, No Organomegaly, No Distention Extremities: Normal Inspection, Normal Range of Motion, Non-Tender Neurological: Alert, Oriented, CN II-XII Intact, Normal Cognition, No Motor/ Sensory Deficits Psychiatric: Normal Affect, Normal Mood Skin Exam: Warm, Dry, Intact, Normal Color Course - Vital Signs Last Recorded V/S: Last Vital Signs Temp 98.4 F 09/30/18 12:34 Pulse 110 H 09/30/18 12:34 Resp 13 09/30/18 12:34 BP 140/88 09/30/18 13:05 Pulse Ox 100 09/30/18 12:34 - Orders/Labs/Meds Orders: Active Orders 24 hr Category Date Time Status EKG 12 Lead [EKG Documentation Completion] [RC] STAT Care 09/30/18 12:56 Active Peripheral IV Care [RC] . DIRECTED Care 09/30/18 12:43 Active Peripheral IV Insertion Adult [OM.PC] Routine Oth 09/30/18 12:43 Ordered Labs: Laboratory Tests 09/30/18 09/30/18 09/30/18 Range/Units 12:40 12:40 12:40 WBC 8.82 (4.23-9.07) K/mm3 RBC 5.61 (4.63-6.08) M/mm3 Hgb 17.0 (13.7-17.5) gm/L Hct 48.3 (40.1-51.0) % MCV 86.1 (79.0-92.2) fl MCH 30.3 (25.7-32.2) pg MCHC 35.2 (32.2-35.5) g/dl RDW Std Deviation 39.4 (35.1-43.9) fL Plt Count 378 H (163-337) K/mm3 MPV 9.8 (9.4-12.3) fl Neutrophils % (Manual) 57 (40-60) % Band Neutrophils % 0 (0-10) % Lymphocytes % (Manual) 32 (20-40) % Atypical Lymphs % 0 % Monocytes % (Manual) 9 (2-10) % Eosinophils % (Manual) 2 (0.8-7.0) % Basophils % (Manual) 0 L (0.2-1.2) Platelet Estimate Adequate Anisocytosis 2+ moderate RBC Morph Comment Abnormal PT 9.8 (9.5-12.1) SECONDS INR < 0.93 APTT 29 (24-31) SECONDS Sodium 138 (136-145) mEq/L Potassium 4.0 (3.5-5.1) mEq/L Chloride 101 (98-107) mEq/L Carbon Dioxide 25 (21-32) mEq/L Anion Gap 16.0 H (5-15) BUN 14 (7-18) mg/dL Creatinine 1.2 (0.7-1.3) mg/dL Est Cr Clr Drug Dosing TNP Estimated GFR (MDRD) > 60 (>60) mL/min BUN/Creatinine Ratio 11.7 L (14-18) Glucose 172 H (74-106) mg/dL Calcium 9.6 (8.5-10.1) mg/dL Total Bilirubin 0.6 (0.2-1.0) mg/dL AST TNP ALT TNP Alkaline Phosphatase 119 H (46-116) U/L Troponin I < 0.017 (0.00-0.056) ng/mL C-Reactive Protein < 0.2 (<1.0) mg/dL Total Protein 7.9 (6.4-8.2) g/dl Albumin 4.1 (3.4-5.0) g/dl Globulin 3.8 gm/dL Albumin/Globulin Ratio 1.1 (1-2) TSH 3rd Generation (0.358-3.74) uIU/mL 09/30/18 09/30/18 Range/Units 12:40 15:40 WBC (4.23-9.07) K/mm3 RBC (4.63-6.08) M/mm3 Hgb (13.7-17.5) gm/L Hct (40.1-51.0) % MCV (79.0-92.2) fl MCH (25.7-32.2) pg MCHC (32.2-35.5) g/dl RDW Std Deviation (35.1-43.9) fL Plt Count (163-337) K/mm3 MPV (9.4-12.3) fl Neutrophils % (Manual) (40-60) % Band Neutrophils % (0-10) % Lymphocytes % (Manual) (20-40) % Atypical Lymphs % % Monocytes % (Manual) (2-10) % Eosinophils % (Manual) (0.8-7.0) % Basophils % (Manual) (0.2-1.2) Platelet Estimate Anisocytosis RBC Morph Comment PT (9.5-12.1) SECONDS INR APTT (24-31) SECONDS Sodium (136-145) mEq/L Potassium (3.5-5.1) mEq/L Chloride (98-107) mEq/L Carbon Dioxide (21-32) mEq/L Anion Gap (5-15) BUN (7-18) mg/dL Creatinine (0.7-1.3) mg/dL Est Cr Clr Drug Dosing Estimated GFR (MDRD) (>60) mL/min BUN/Creatinine Ratio (14-18) Glucose (74-106) mg/dL Calcium (8.5-10.1) mg/dL Total Bilirubin (0.2-1.0) mg/dL AST ALT Alkaline Phosphatase (46-116) U/L Troponin I < 0.017 (0.00-0.056) ng/mL C-Reactive Protein (<1.0) mg/dL Total Protein (6.4-8.2) g/dl Albumin (3.4-5.0) g/dl Globulin gm/dL Albumin/Globulin Ratio (1-2) TSH 3rd Generation 2.664 (0.358-3.74) uIU/mL Meds: Medications Discontinued Medications Generic Name Dose Route Start Last Admin Trade Name Freq PRN Reason Stop Dose Admin Aspirin 324 mg 09/30/18 12:45 09/30/18 12:57 Aspirin PO 09/30/18 12:46 324 mg ONETIME ONE Administration Al Hydroxide/Mg Hydroxide 30 0 ml 09/30/18 12:43 09/30/18 12:59 ml/ Lidocaine HCl 15 ml PO 09/30/18 12:44 45 ml ONETIME ONE Administration Sodium Chloride 1,000 mls @ 150 mls/hr 09/30/18 12:43 09/30/18 13:02 Normal Saline IV 09/30/18 19:22 150 mls/hr ONETIME ONE Administration Sodium Chloride 100 mls @ 60 mls/hr 09/30/18 14:15 09/30/18 14:41 Normal Saline IV 60 mls/hr ASDIRECTED LAURA Administration Iopamidol 100 ml 09/30/18 14:11 09/30/18 14:38 Isovue-370 (76%) IVPUSH 09/30/18 14:12 100 ml ONETIME ONE Administration Labetalol HCl 10 mg 09/30/18 13:56 Normodyne IVPUSH 09/30/18 13:57 ONETIME ONE Protocol Labetalol HCl 10 mg 09/30/18 14:04 09/30/18 14:12 Normodyne IVPUSH 09/30/18 14:05 10 mg ONETIME ONE Administration Protocol Lorazepam 0.5 mg 09/30/18 13:08 09/30/18 13:13 Ativan IVPUSH 09/30/18 13:09 0.5 mg ONETIME ONE Administration Morphine Sulfate 2 mg 09/30/18 12:43 09/30/18 12:58 Morphine IVPUSH 09/30/18 12:44 2 mg ONETIME ONE Administration Nitroglycerin 0.4 mg 09/30/18 12:43 09/30/18 13:05 Nitrostat SL 0.4 mg Q5M PRN Administration Chest Pain Sodium Chloride 10 ml 09/30/18 12:43 09/30/18 13:00 Saline Flush FLUSH 10 ml ASDIRECTED PRN Administration Keep Vein Open Sodium Chloride 10 ml 09/30/18 14:11 09/30/18 14:41 Saline Flush FLUSH 09/30/18 14:12 10 ml ONETIME ONE Administration - Re-Assessments/Exams Free Text/Narrative Re-Assessment/Exam: IV will be established with an abscess, morphine 2 mg IVP, aspirin 324 mg by mouth, nitroglycerin 0.4 mg sublingual every 5 minutes when necessary chest pain with blood pressure parameters. Initial lab studies will include CBC, chem 14, CRP, coag studies, troponin, chest x-ray one view along with EKG. EKG indicated sinus tachycardia at rate of 106 with a SC interval 138 QTC of 41. Left ventricular hypertrophy pattern. He has inverted T waves in leads 2 and aVF. Compared with previous EKG obtained 10/27/2017 with no significant changes. 09/30/18 13:07 after 2 nitroglycerin, morphine, and GI cocktail patient has no pain to his chest currently. Blood pressure is 09/23/88 with a heart rate of 118. He has a slight headache. He is very anxious and shaking at bedside. I will order Ativan 0.5 mg IVP. 09/30/18 13:[address] Fernandez with no acute findings. Compared with previous CXR Aug 2018 no significant change. 09/30/18 13:57 Reassessment, blood pressure 147/116 with a heart rate of 110. Continues to have some pressure to his chest but described as minimal with some mild posterior neck discomfort, dull/pressure, and funny feeling to his toes. I ordered labetalol 10 mg IVP. He has a history of utilization of metoprolol in the past for tachycardia and hypertension. Due to prolonged history of hypertension and recent onset of symptoms Will go ahead and perform a CTA of the chest and abdomen to ensure he is not experiencing a dissecting aorta. 09/30/18 1506 blood pressure 126/87 with a heart rate of 102. 09/30/18 15:42 reassessment, blood pressure 128/98, heart rate 98, SPO2 98%, respiratory rate 16. Patient has no complaints at this time. I discussed results of the CT of the chest and abdomen with the patient. This indicated slightly ectatic ascending aorta. No aortic aneurysm or aortic dissection is seen. 09/30/18 16:20 Second troponin came back negative. Heart Score Low risk 0.91.7 % 30-day MACE. I have discussed results of 2nd troponin and heart score. Patient requests to be discharged home and not admitted to the hospital for further testing and stress test in the morning. He will follow up with PCP this week to discuss modification of medications for his hypertension and also schedule stress test. Patient had no questions concerns. Return precautions discussed with the patient. Patient agreed with plan. Departure - Departure Time of Disposition: 16:46 Disposition: Home, Self-Care 01 Condition: Good Clinical Impression: Atypical chest pain Hypertension Qualifiers: Hypertension type: essential hypertension Qualified Code(s): I10 - Essential ( primary) hypertension Instructions: Nonspecific Chest Pain Referrals: Marcos Roque Jr, MD [Primary Care Provider] - Forms: ED Department Discharge Additional Instructions: Please follow up with your PCP Monday or Monday for reevaluation to discuss modification of blood pressure medications and to schedule a outpatient stress test. At any time you develop any similar symptoms or any new symptoms please return back to the ED for reevaluation. - My Orders Last 24 Hours: My Active Orders 09/30/18 12:43 Peripheral IV Care [RC] . DIRECTED Peripheral IV Insertion Adult [OM.PC] Routine 09/30/18 12:56 EKG 12 Lead [EKG Documentation Completion] [RC] STAT - Assessment/Plan Last 24 Hours: My Active Orders 09/30/18 12:43 Peripheral IV Care [RC] . DIRECTED Peripheral IV Insertion Adult [OM.PC] Routine 09/30/18 12:56 EKG 12 Lead [EKG Documentation Completion] [RC] STAT
[2018-09-30] MEDS ORDERED: LORazepam 2 MG/ML SDV IVPUSH ONE (13:08)
[2018-09-30 13:09] VITALS: BP 140/88
[2018-09-30] MEDS ORDERED: Labetalol 100 MG/20 ML MDV IVPUSH ONE ×2 (13:56→14:04)
[2018-09-30] MEDS ORDERED: Iopamidol 755 Mg/ML 100 ML Bottle IVPUSH ONE (14:11)
[2018-09-30] MEDS ORDERED: Sodium Chloride 0.9% 10 ML Syringe FLUSH ONE (14:11)
[2018-09-30] MEDS ORDERED: Sodium Chloride 0.9% 100 ML IV SCH (14:15)
--- NOTE | 2018-09-30 15:16 | CT ---
CT chest Technique: Multiple axial sections were obtained from above the lung apices inferiorly through the lung bases. Intravenous contrast was utilized. Comparison: No prior chest CT. Findings: Mediastinum and hilar region show no adenopathy or mass. Ascending aorta is slightly ectatic at 3.5 cm comparing to the descending aorta at the same level of 2.6 cm. No aneurysm or dissection is seen. No axillary adenopathy is seen. Mediastinum and hilar regions show no adenopathy or mass. No pericardial thickening is seen. Lung window settings were reviewed which shows no acute parenchymal change within either lung. Bone window settings were reviewed which show slight scattered degenerative endplate spurring within the spine. No acute osseous abnormality is identified. Impression: 1. Slightly ectatic ascending aorta. No aortic aneurysm or aortic dissection is seen. 2. Nothing acute is seen on CT study of the chest. Diagnostic code #2 CT abdomen and pelvis Technique: Multiple axial sections were obtained from above the dome of the diaphragm inferiorly through the pubic symphysis. Intravenous contrast was utilized. No oral contrast has been given. Findings: Aorta shows no aneurysm or dissection. Celiac axis and superior mesenteric artery as well as inferior mesenteric artery appear patent. No discrete stenosis is seen within the renal arteries. Liver and spleen appear within normal limits. Gallbladder is mostly contracted. No calcified gallstones are seen. Adrenal glands show no nodule. Kidneys show symmetric contrast enhancement without hydronephrosis or mass. Pancreas appears within normal limits. No retroperitoneal adenopathy or mesenteric abnormalities are seen. Small fat-containing umbilical hernia is noted. Appendix is seen which is normal in size. No pelvic mass or adenopathy is seen. No free fluid or inflammatory change is seen. Bone window settings were reviewed which shows minimal degenerative change within the spine. No acute osseous abnormality is seen. Impression: 1. Aorta shows no aneurysm or dissection. Major arteries off the aorta showed no stenosis. 2. Other incidental findings as noted above. Nothing acute is seen. Diagnostic code #2
--- NOTE | 2018-09-30 18:27 | CR ---
Chest: Portable view of the chest was obtained. Comparison: Prior chest x-ray of 09/12/18. Heart size and mediastinum are within normal limits. Slight bronchial wall thickening is seen which appears unchanged from previous exam and may be chronic or represent chronic bronchitis. No acute parenchymal change is seen. Incidental scoliosis is noted within the spine. Previous cervical spine surgery is noted. Impression: 1. Findings as noted above. Nothing acute is appreciated. Diagnostic code #2
== END 2018-09-30 17:03 | disposition home or self-care (01) ==
LOC: JD.ED 12:27
DX: R07.2 Precordial pain (principal); I10 Essential (primary) hypertension; E11.9 Type 2 diabetes mellitus without complications; Z88.8 Allergy status to other drugs, medicaments and biological substances; Z79.4 Long term (current) use of insulin; Z87.891 Personal history of nicotine dependence
CPT/HCPCS: 36415; 71045; 71260; 74177; 80053; 84443; 84484; 85007; 85027; 85610; 85730; 86140; 93005; 96361; 96374; 96375; 99285; A9270; J2060; J2270; J3490; J7030; J7040; Q9967

== ENCOUNTER 2018-11-04 08:25 | Emergency (ER) | payer OTHER ==
[2018-11-04 08:38] VITALS: BP 127/96
[2018-11-04] MEDS ORDERED: Acetaminophen/HYDROcodone 325-5 MG Tab PO ONE (08:55)
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
--- NOTE | 2018-11-05 07:03 | CR ---
Left knee: Four views of the left knee were obtained. Comparison: No prior knee exam. Small spur is noted at the attachment of the quadriceps tendon to the patella. Minimal joint space narrowing is seen within the medial knee. No acute fracture or other abnormality is appreciated. Impression: 1. Small joint effusion. 2. Mild degenerative change. 3. No acute bony abnormality is appreciated. Diagnostic code #2
== END 2018-11-04 10:02 | disposition home or self-care (01) ==
LOC: JD.ED 08:25
DX: S63.641A Sprain of metacarpophalangeal joint of right thumb, initial encounter (principal); S83.92XA Sprain of unspecified site of left knee, initial encounter; I10 Essential (primary) hypertension; E11.9 Type 2 diabetes mellitus without complications; Z87.891 Personal history of nicotine dependence; Z88.8 Allergy status to other drugs, medicaments and biological substances; V86.92XA Unspecified occupant of snowmobile injured in nontraffic accident, initial encounter
CPT/HCPCS: 73564; 99283; A9270; 93010; 99285

== ENCOUNTER 2019-05-19 10:43 | Emergency (ER) | payer OTHER ==
[2019-05-19 10:51] VITALS: BP 156/92; PULSE 100
[2019-05-19] MEDS ORDERED: HYDROmorphone 1 MG/ML Syringe IM ONE (11:10)
[2019-05-19] MEDS ORDERED: Ketorolac 60 MG/2 ML SDV IM ONE (11:10)
[2019-05-19] MEDS ORDERED: Cyclobenzaprine 10 MG Tab PO ONE (11:11)
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
== END 2019-05-19 11:36 | disposition home or self-care (01) ==
LOC: JD.ED 10:43
DX: S39.012A Strain of muscle, fascia and tendon of lower back, initial encounter (principal); K21.9 Gastro-esophageal reflux disease without esophagitis; F41.9 Anxiety disorder, unspecified; E11.9 Type 2 diabetes mellitus without complications; I10 Essential (primary) hypertension; Z98.890 Other specified postprocedural states; Z79.899 Other long term (current) drug therapy; Z79.4 Long term (current) use of insulin; Z88.8 Allergy status to other drugs, medicaments and biological substances; X50.0XXA Overexertion from strenuous movement or load, initial encounter
CPT/HCPCS: 96372; 99283; A9270; J1170; J1885

== ENCOUNTER 2019-08-09 17:31 | Emergency (ER) | payer OTHER ==
[2019-08-09 17:52] VITALS: BP 159/98; PULSE 84
[2019-08-09] MEDS ORDERED: Sodium Chloride 0.9% 10 ML Syringe FLUSH PRN (18:13)
[2019-08-09] MEDS ORDERED: Ketorolac 30 MG/ML SDV IVPUSH ONE (18:14)
[2019-08-09] MEDS ORDERED: Albuterol 0.083% 2.5 MG/3 ML Neb Soln NEB ONE (18:14)
[2019-08-09] MEDS ORDERED: Benzonatate 100 MG Cap PO ONE (18:34)
--- NOTE | 2019-08-09 18:36 | EDM.PDOC ---
ED HPI GENERAL MEDICAL PROBLEM - General Chief Complaint: Respiratory Problem Stated Complaint: CHEST CONGESTION AND COUGH Time Seen by Provider: 08/09/19 18:07 Source of Information: Reports: Patient, RN Notes Reviewed History Limitations: Reports: No Limitations - History of Present Illness INITIAL COMMENTS - FREE TEXT/NARRATIVE: Patient is a 48-year-old male who presents to the ED for evaluation of chest congestion and a cough. Patient does note symptoms have been present for around 17 days now. He states that he coughs through the night, and has not been sleeping well. He does note that his throat is sore and irritated. He notes that he gets a course of bronchitis or pneumonia yearly, around this time of year. Patient states he feels tired, short of breath, and his chest is sore from coughing so much. He did not receive a flu vaccine this year. He notes a history of diabetes. His primary care providers Dr. oRque, however he has not been able to get an appointment as he is out of the office. The patient notes that he has a productive cough and has been coughing up lots of yellow phlegm, and somewhat blood tinged last night. He's been using NyQuil, and Zully Luis for congestion, this does not seem to be helping much. He notes mild night sweats, and states that he had a temperature at home of 100F as well. He had old albuterol inhaler, that he did try once and this seemed to help relieve some of his symptoms. Chest Pain Score (Numeric/FACES): 7 - Related Data Allergies Allergy/AdvReac Type Severity Reaction Status Date / Time lisinopril AdvReac Tachycardia Verified 08/09/19 17:47 metoclopramide [From Reglan] AdvReac Anxiety Verified 08/09/19 17:47 tramadol AdvReac Headache Verified 08/09/19 17:47 Home Meds: Home Meds ALPRAZolam [Xanax] 0.5 mg PO BID PRN 09/11/17 [History] Insulin Aspart [NovoLOG] 30 unit SQ DAILY PRN 09/11/17 [History] Insulin Detemir [Levemir] 40 unit SQ BEDTIME 09/12/18 [History] amLODIPine Besylate [Norvasc] 5 mg PO BID 09/30/18 [History] Pantoprazole Sodium [Protonix] 40 mg PO DAILY 11/04/18 [History] Fenofibrate Nanocrystallized [Tricor] 145 mg PO DAILY 05/19/19 [History] Hydrocodone/Acetaminophen [Hydrocodon-Acetaminophen 5-325] 1 - 2 each PO Q6HR PRN #20 tablet 05/19/19 [Rx] Metoprolol Succinate [Toprol XL 50mg] 50 mg PO BID 05/19/19 [History] Promethazine HCl/Codeine [Prometh-Codein 6.25-10 mg/5 ml] 5 ml PO QPM PRN #1 bottle 08/09/19 [Rx] Past Medical History - Past Health History Medical/Surgical History: Denies Medical/Surgical History HEENT History: Reports: Impaired Vision Other HEENT History: wears eyeglasses Cardiovascular History: Reports: High Cholesterol, Hypertension Respiratory History: Reports: Bronchitis, Recurrent, Pneumonia, Recurrent Gastrointestinal History: Reports: GERD Genitourinary History: Reports: Renal Calculus Musculoskeletal History: Reports: Back Pain, Chronic Other Musculoskeletal History: herniated disc, disc removed from neck Neurological History: Reports: Concussion, Head Trauma, Migraines Other Neuro History: x5, and skull fx Psychiatric History: Reports: Anxiety Endocrine/Metabolic History: Reports: Diabetes, Type II Other Endocrine/Metabolic History: borderline diabetic - Past Surgical History HEENT Surgical History: Reports: Tonsillectomy GI Surgical History: Reports: Colonoscopy, EGD, Hernia, Inguinal, Hernia Repair/ Other, Other (See Below) Other GI Surgeries/Procedures: polyps removed. Male Surgical History: Reports: Other (See Below) Other Male Surgeries/Procedures: testicular hernia repair, femoral hernia repair Neurological Surgical History: Reports: Discectomy, Other (See Below) Other Neurological Surgeries/Procedures: low back surgery Musculoskeletal Surgical History: Reports: Other (See Below) Other Musculoskeletal Surgeries/Procedures:: discectomy Social & Family History - Family History Cardiac: Reports: CAD, Hypertension Neurological: Reports: CVA Endocrine/Metabolic: Reports: Diabetes, type II - Tobacco Use Smoking Status *Q: Never Smoker - Caffeine Use Caffeine Use: Reports: Soda Other Caffeine Use: mountain dew - Recreational Drug Use Recreational Drug Use: No - Living Situation & Occupation Living situation: Reports: , with Family Occupation: Employed ED ROS GENERAL - Review of Systems Review Of Systems: See Below Constitutional: Reports: Fever, Chills, Malaise, Fatigue, Decreased Appetite. Denies: Weakness HEENT: Reports: Throat Pain. Denies: Ear Pain, Sinus Problem Respiratory: Reports: Shortness of Breath, Wheezing, Cough, Sputum Cardiovascular: Reports: Chest Pain (chest soreness) GI/Abdominal: Denies: Abdominal Pain, Constipation, Diarrhea, Nausea, Vomiting Neurological: Denies: Headache ED EXAM, GENERAL - Physical Exam Exam: See Below Exam Limited By: No Limitations General Appearance: Alert, WD/WN, No Apparent Distress Eye Exam: Bilateral Eye: Conjunctival Injection, EOMI, PERRL Ears: Normal External Exam, Normal Canal, Hearing Grossly Normal, Normal TMs Nose: Normal Inspection, Normal Mucosa, No Blood Throat/Mouth: Normal Inspection, Normal Lips, Normal Teeth, Normal Gums, Normal Oropharynx (slightly erythematous), Normal Voice, No Airway Compromise Head: Atraumatic, Normocephalic Neck: Normal Inspection Respiratory/Chest: No Respiratory Distress, No Accessory Muscle Use, Chest Non- Tender, Decreased Breath Sounds, Wheezing (bilaterally.) Cardiovascular: Normal Peripheral Pulses, Regular Rate, Rhythm, No Murmur Peripheral Pulses: 3+: Radial (L), Radial (R) GI/Abdominal: Normal Bowel Sounds, Soft, Non-Tender, No Distention, No Mass Extremities: Normal Inspection, Normal Capillary Refill Neurological: Alert, Oriented, Normal Cognition, No Motor/Sensory Deficits Psychiatric: Normal Affect, Normal Mood Skin Exam: Warm, Dry, Intact, Normal Color, No Rash Course - Vital Signs Last Recorded V/S: Last Vital Signs Temp 98.8 F 08/09/19 17:47 Pulse 84 08/09/19 17:47 Resp 18 08/09/19 17:47 BP 159/98 H 08/09/19 17:47 Pulse Ox 98 08/09/19 18:14 - Orders/Labs/Meds Orders: Active Orders 24 hr Category Date Time Status Peripheral IV Care [RC] . DIRECTED Care 08/09/19 18:13 Active RT Aerosol Therapy [RC] ASDIRECTED Care 08/09/19 18:14 Active Chest 2V [CR] Stat Exams 08/09/19 18:13 Taken Peripheral IV Insertion Adult [OM.PC] Stat Oth 08/09/19 18:13 Ordered Labs: Laboratory Tests 08/09/19 08/09/19 Range/Units 18:31 18:31 WBC 8.42 (4.23-9.07) K/mm3 RBC 5.18 (4.63-6.08) M/mm3 Hgb 15.9 (13.7-17.5) gm/dl Hct 47.4 (40.1-51.0) % MCV 91.5 D (79.0-92.2) fl MCH 30.7 (25.7-32.2) pg MCHC 33.5 (32.2-35.5) g/dl RDW Std Deviation 42.9 (35.1-43.9) fL Plt Count 370 H (163-337) K/mm3 MPV 9.5 (9.4-12.3) fl Neutrophils % (Manual) 72 H (40-60) % Band Neutrophils % 0 (0-10) % Lymphocytes % (Manual) 23 (20-40) % Atypical Lymphs % 0 % Monocytes % (Manual) 5 (2-10) % Eosinophils % (Manual) 0 L (0.8-7.0) % Basophils % (Manual) 0 L (0.2-1.2) Platelet Estimate Adequate RBC Morph Comment Normal Sodium 138 (136-145) mEq/L Potassium 3.9 (3.5-5.1) mEq/L Chloride 105 (98-107) mEq/L Carbon Dioxide 25 (21-32) mEq/L Anion Gap 11.9 (5-15) BUN 12 (7-18) mg/dL Creatinine 1.0 (0.7-1.3) mg/dL Est Cr Clr Drug Dosing 95.31 mL/min Estimated GFR (MDRD) > 60 (>60) mL/min BUN/Creatinine Ratio 12.0 L (14-18) Glucose 174 H (74-106) mg/dL Calcium 8.8 (8.5-10.1) mg/dL Total Bilirubin 0.3 (0.2-1.0) mg/dL AST 14 L (15-37) U/L ALT 30 (16-63) U/L Alkaline Phosphatase 80 (46-116) U/L Total Protein 7.5 (6.4-8.2) g/dl Albumin 3.9 (3.4-5.0) g/dl Globulin 3.6 gm/dL Albumin/Globulin Ratio 1.1 (1-2) Meds: Medications Discontinued Medications Generic Name Dose Route Start Last Admin Trade Name Freq PRN Reason Stop Dose Admin Albuterol 2.5 mg 08/09/19 18:14 08/09/19 18:21 Proventil Neb Soln NEB 08/09/19 18:15 2.5 mg ONETIME ONE Administration Benzonatate 100 mg 08/09/19 18:34 08/09/19 18:42 Tessalon Perles PO 08/09/19 18:35 100 mg ONETIME ONE Administration Ketorolac Tromethamine 30 mg 08/09/19 18:14 08/09/19 18:30 Toradol IVPUSH 08/09/19 18:15 30 mg ONETIME ONE Administration Sodium Chloride 10 ml 08/09/19 18:13 08/09/19 18:30 Saline Flush FLUSH 10 ml ASDIRECTED PRN Administration Keep Vein Open - Re-Assessments/Exams Free Text/Narrative Re-Assessment/Exam: 08/09/19 18:36 Patient presents to the ED for evaluation of cough and chest congestion. Did order CBC, CMP, chest x-ray, 30 mg IV Toradol, and an albuterol nebulizer for initial management. Did also order benzonatate 100 mg for cough suppression to see if this helps. Departure - Departure Time of Disposition: 19:40 Disposition: Home, Self-Care 01 Condition: Fair Clinical Impression: Bronchitis - Discharge Information *PRESCRIPTION DRUG MONITORING PROGRAM REVIEWED*: No *COPY OF PRESCRIPTION DRUG MONITORING REPORT IN PATIENT MEL: No Prescriptions: Promethazine HCl/Codeine [Prometh-Codein 6.25-10 mg/5 ml] 5 ml PO QPM PRN #1 bottle PRN Reason: Cough Instructions: Acute Bronchitis, Adult, [id number] Referrals: Marcos Roque Jr, MD [Primary Care Provider] - Forms: ED Department Discharge Additional Instructions: You have been evaluated in the ED today for your cold like symptoms, cough, sore throat. This is likely a viral illness in etiology. A chest x-ray was done, and demonstrates no sign of a pneumonia at this time. Laboratory evaluation also demonstrates no sign of acute bacterial infection. Please increase your fluid intake. Get plenty of rest as well. You should feel better in a few days. You have been given a prescription for some strong cough medicine, please take as directed. If your symptoms are not better in one week's time recommend that you follow up in a clinic or your primary care provider. Please return to the ED if your symptoms change or worsen. Sepsis Event Note - Evaluation Sepsis Screening Result: No Definite Risk - Focused Exam Vital Signs: Vital Signs Temp Pulse Resp BP Pulse Ox Pulse Ox 08/09/19 18:14 98 08/09/19 17:47 98.8 F 84 18 159/98 H 97 Date Exam was Performed: 08/09/19 Time Exam was Performed: 22:25 - My Orders Last 24 Hours: My Active Orders 08/09/19 18:13 Peripheral IV Care [RC] . DIRECTED Chest 2V [CR] Stat Peripheral IV Insertion Adult [OM.PC] Stat 08/09/19 18:14 RT Aerosol Therapy [RC] ASDIRECTED - Assessment/Plan Last 24 Hours: My Active Orders 08/09/19 18:13 Peripheral IV Care [RC] . DIRECTED Chest 2V [CR] Stat Peripheral IV Insertion Adult [OM.PC] Stat 08/09/19 18:14 RT Aerosol Therapy [RC] ASDIRECTED
--- NOTE | 2019-08-12 10:47 | CR ---
Chest: Two views of the chest were obtained. Comparison: Prior chest x-ray of 09/30/18. Heart size and mediastinum are normal. Lungs are clear. Previous cervical spine surgery is noted. Impression: 1. Nothing acute is seen on two-view chest x-ray. Diagnostic code #2 This report was dictated in Mountain Standard Time
== END 2019-08-09 19:49 | disposition home or self-care (01) ==
LOC: JD.ED 17:31
DX: J40 Bronchitis, not specified as acute or chronic (principal); I10 Essential (primary) hypertension; E78.00 Pure hypercholesterolemia, unspecified; E11.9 Type 2 diabetes mellitus without complications; F41.9 Anxiety disorder, unspecified; Z88.8 Allergy status to other drugs, medicaments and biological substances; Z79.4 Long term (current) use of insulin; Z79.899 Other long term (current) drug therapy
CPT/HCPCS: 36415; 71046; 80053; 85007; 85027; 94640; 96374; 99284; A9270; J1885; 99283

== ENCOUNTER 2020-05-28 12:37 | Emergency (ER) | payer OTHER ==
[2020-05-28] MEDS ORDERED: Sodium Chloride 0.9% 10 ML Syringe FLUSH PRN (12:44)
[2020-05-28 12:58] VITALS: BP 156/92; PULSE 69
--- NOTE | 2020-05-28 13:08 | EDM.PDOC ---
ED HPI GENERAL MEDICAL PROBLEM - General Chief Complaint: Chest Pain Stated Complaint: CHEST PAIN Time Seen by Provider: 05/28/20 12:43 Source of Information: Reports: Patient, Old Records, RN Notes Reviewed History Limitations: Reports: No Limitations - History of Present Illness INITIAL COMMENTS - FREE TEXT/NARRATIVE: Patient is a 49-year-old male who presents to the ED for evaluation of his chest discomfort. Patient notes that he was going to work this morning, and he had to chain puller as he just did not feel well. He began to feel lightheaded, and felt nauseous. He states yesterday he had an issue with about 6 low blood sugars, and he did take 2 glucose tabs yesterday for this. He also states that he was doing a lot of work around home, so he did not really eat very many regular meals yesterday after taking his insulin. He states that his lowest blood sugar at home yesterday was around 30. He notes that this morning he woke up at around 3 AM, and he states he was having some chest pressure. He states that his heart rate has been as low as 48 to 50 bpm, which is not normal for him. He states he is usually on the tachycardic side of normal. He did not take his daily Xanax, or Coreg today. He also did not take his Lantus last night, and he did not have to take any sliding scale insulin today. He does note that his last A1c was 6.0. He notes he did have a muffin for breakfast around 3 hours ago. His primary care provider is Dr. Marcos Roque. He has not had any fevers or chills, cough., He states he is having the shortness of breath when he has a chest pressure. Chest Pain Score (Numeric/FACES): 4 - Related Data Allergies Allergy/AdvReac Type Severity Reaction Status Date / Time lisinopril AdvReac Tachycardia Verified 08/09/19 17:47 metoclopramide [From Reglan] AdvReac Anxiety Verified 08/09/19 17:47 tramadol AdvReac Headache Verified 08/09/19 17:47 Home Meds: Home Meds ALPRAZolam [Xanax] 0.5 mg PO BID PRN 09/11/17 [History] Insulin Aspart [NovoLOG] 30 unit SQ DAILY PRN 09/11/17 [History] Insulin Detemir [Levemir] 40 unit SQ BEDTIME 09/12/18 [History] amLODIPine Besylate [Norvasc] 5 mg PO BID 09/30/18 [History] Pantoprazole Sodium [Protonix] 40 mg PO DAILY 11/04/18 [History] Fenofibrate Nanocrystallized [Tricor] 145 mg PO DAILY 05/19/19 [History] Hydrocodone/Acetaminophen [Hydrocodone-Acetamin 5-325 mg] 1 - 2 each PO Q6HR PRN #20 tablet 05/19/19 [Rx] Metoprolol Succinate [Toprol XL 50mg] 50 mg PO BID 05/19/19 [History] Promethazine HCl/Codeine [Prometh-Codein 6.25-10 mg/5 ml] 5 ml PO QPM PRN #1 bottle 08/09/19 [Rx] Past Medical History HEENT History: Reports: Impaired Vision Other HEENT History: wears eyeglasses Cardiovascular History: Reports: High Cholesterol, Hypertension Respiratory History: Reports: Bronchitis, Recurrent, Pneumonia, Recurrent Gastrointestinal History: Reports: GERD Genitourinary History: Reports: Renal Calculus Musculoskeletal History: Reports: Back Pain, Chronic Other Musculoskeletal History: herniated disc, disc removed from neck Neurological History: Reports: Concussion, Head Trauma, Migraines Other Neuro History: x5, and skull fx Psychiatric History: Reports: Anxiety Endocrine/Metabolic History: Reports: Diabetes, Type II - Past Surgical History HEENT Surgical History: Reports: Tonsillectomy GI Surgical History: Reports: Colonoscopy, EGD, Hernia, Inguinal, Hernia Repair/Other, Other (See Below) Other GI Surgeries/Procedures: polyps removed. Male Surgical History: Reports: Other (See Below) Other Male Surgeries/Procedures: testicular hernia repair, femoral hernia repair Neurological Surgical History: Reports: Discectomy, Other (See Below) Other Neurological Surgeries/Procedures: low back surgery Musculoskeletal Surgical History: Reports: Other (See Below) Other Musculoskeletal Surgeries/Procedures:: discectomy Social & Family History - Family History Cardiac: Reports: CAD, Hypertension Neurological: Reports: CVA Endocrine/Metabolic: Reports: Diabetes, type II - Tobacco Use Smoking Status *Q: Never Smoker - Caffeine Use Caffeine Use: Reports: Soda Other Caffeine Use: mountain dew - Recreational Drug Use Recreational Drug Use: No - Living Situation & Occupation Living situation: Reports: , with Family Occupation: Employed ED ROS GENERAL - Review of Systems Review Of Systems: Comprehensive ROS is negative, except as noted in HPI. ED EXAM, GENERAL - Physical Exam Exam: See Below Exam Limited By: No Limitations General Appearance: Alert, WD/WN, No Apparent Distress Respiratory/Chest: No Respiratory Distress, Lungs Clear, Normal Breath Sounds, No Accessory Muscle Use, Chest Non-Tender Cardiovascular: Normal Peripheral Pulses, Regular Rate, Rhythm, No Edema, No Murmur Peripheral Pulses: 2+: Radial (L), Radial (R) GI/Abdominal: Normal Bowel Sounds, Soft, Non-Tender, No Distention, No Mass Extremities: Normal Inspection, Normal Capillary Refill Neurological: Alert, Oriented, Normal Cognition, No Motor/Sensory Deficits Psychiatric: Normal Affect, Normal Mood Skin Exam: Warm, Dry, Intact, Normal Color, No Rash EKG INTERPRETATION EKG Date: 05/28/20 Time: 12:42 Rhythm: NSR Rate (Beats/Min): 61 [place]: Normal P-Wave: Present QRS: Normal ST-T: Normal QT: Normal Comparison: No Change EKG Interpretation Comments: No obvious ischemia or acute ST changes noted, reviewed by myself and Dr. Kiran Course - Vital Signs Last Recorded V/S: Last Vital Signs Temp 97.0 F 05/28/20 12:56 Pulse 69 05/28/20 12:56 Resp 16 05/28/20 12:56 BP 156/92 H 05/28/20 12:56 Pulse Ox 99 05/28/20 12:56 - Orders/Labs/Meds Orders: Active Orders 24 hr Category Date Time Status EKG Documentation Completion [RC] STAT Care 05/28/20 12:44 Active Holter Monitor 48 Hours [RC] .PRN Care 05/28/20 13:56 Ordered Peripheral IV Care [RC] . DIRECTED Care 05/28/20 12:44 Active Chest 1V Frontal [CR] Stat Exams 05/28/20 12:44 Taken PRO B-TYPE NATRIUR PEPT,BNPPRO [CHEM] Stat Lab 05/28/20 12:50 Received Sodium Chloride 0.9% [Saline Flush] Med 05/28/20 12:44 Active 10 ml FLUSH ASDIRECTED PRN Peripheral IV Insertion Adult [OM.PC] Stat Oth 05/28/20 12:44 Ordered Medication Orders Sodium Chloride (Saline Flush) 10 ml FLUSH ASDIRECTED PRN PRN Reason: Keep Vein Open Last Admin: 05/28/20 13:00 Dose: 10 ml Documented by: JACOB Labs: Laboratory Tests 05/28/20 05/28/20 05/28/20 Range/Units 12:50 12:50 12:50 WBC 7.62 (4.23-9.07) K/mm3 RBC 5.26 (4.63-6.08) M/mm3 Hgb 16.3 (13.7-17.5) gm/dl Hct 47.7 (40.1-51.0) % MCV 90.7 (79.0-92.2) fl MCH 31.0 (25.7-32.2) pg MCHC 34.2 (32.2-35.5) g/dl RDW Std Deviation 40.1 (35.1-43.9) fL Plt Count 416 H (163-337) K/mm3 MPV 9.6 (9.4-12.3) fl Neut % (Auto) 49.7 (34.0-67.9) % Lymph % (Auto) 36.0 (21.8-53.1) % [place] % (Auto) 10.6 (5.3-12.2) % Eos % (Auto) 3.1 (0.8-7.0) Baso % (Auto) 0.3 (0.1-1.2) % Neut # (Auto) 3.79 (1.78-5.38) K/mm3 Lymph # (Auto) 2.74 (1.32-3.57) K/mm3 [place] # (Auto) 0.81 (0.30-0.82) K/mm3 Eos # (Auto) 0.24 (0.04-0.54) K/mm3 Baso # (Auto) 0.02 (0.01-0.08) K/mm3 PT 10.9 (9.7-11.7) SECONDS INR 1.02 APTT 26 (22-31) SECONDS Sodium 139 (136-145) mEq/L Potassium 3.6 (3.5-5.1) mEq/L Chloride 103 (98-107) mEq/L Carbon Dioxide 27 (21-32) mEq/L Anion Gap 12.6 (5-15) BUN 14 (7-18) mg/dL Creatinine 1.0 (0.7-1.3) mg/dL Est Cr Clr Drug Dosing 94.29 mL/min Estimated GFR (MDRD) > 60 (>60) mL/min BUN/Creatinine Ratio 14.0 (14-18) Glucose 142 H (74-106) mg/dL Calcium 9.1 (8.5-10.1) mg/dL Magnesium 1.8 (1.8-2.4) mg/dl Total Bilirubin 0.5 (0.2-1.0) mg/dL AST 16 (15-37) U/L ALT 30 (16-63) U/L Alkaline Phosphatase 67 (46-116) U/L Troponin I < 0.017 (0.00-0.056) ng/mL Total Protein 7.6 (6.4-8.2) g/dl Albumin 4.1 (3.4-5.0) g/dl Globulin 3.5 gm/dL Albumin/Globulin Ratio 1.2 (1-2) Meds: Medications Generic Name Dose Route Start Last Admin Trade Name Freq PRN Reason Stop Dose Admin Sodium Chloride 10 ml 05/28/20 12:44 05/28/20 13:00 Saline Flush FLUSH 10 ml ASDIRECTED PRN Administration Keep Vein Open - Re-Assessments/Exams Free Text/Narrative Re-Assessment/Exam: 05/28/20 13:07 Patient presents to the ED for the evaluation of his chest tightness. EKG shows no sign of acute ischemic change. Labs will be obtained and a chest x-ray for further evaluation. 05/28/20 13:57 Labs have been done, demonstrate no focal abnormalities, chest x-ray was done and also demonstrates no focal abnormalities. Patient be sent home with a Hol ter monitor, as he states he was having bradycardic episodes at home. He will be directed to follow-up with his regular provider, sometime within the next week and 1/2 to 2 weeks for follow-up. Patient verbalized understanding. Departure - Departure Time of Disposition: 13:57 Disposition: Home, Self-Care 01 Condition: Good Clinical Impression: Sensation of chest pressure, Bradycardia, Low blood sugar in diabetes Instructions: Type 2 Diabetes Mellitus, Self Care, Adult, [id number], Nonspecific Chest Pain, Adult, [id number] Referrals: Marcos Roque Jr, MD [Primary Care Provider] - Forms: ED Department Discharge Additional Instructions: You were evaluated in the ER today for your chest pain and discomfort Along with some of your low blood sugars yesterday. It is likely that your low blood sugars were due to taking your insulin, and then not having a lot to eat yesterday. Please go home today, rest relax get a few good meals in, take your insulin as directed as needed. Your blood sugar was great today at this visit at 142. You were sent home with a Holter monitor, to monitor your heart rate for the next 48 hours, you will need to follow-up with Dr. Roque for results of this, please give at least 1 to 2 weeks for results to get to his office before scheduling an appointment for follow-up. Please return to the ER at any time if symptoms change or worsen. Sepsis Event Note (ED) - Evaluation Sepsis Screening Result: No Definite Risk - Focused Exam Vital Signs: Vital Signs Temp Pulse Resp BP Pulse Ox 05/28/20 12:56 97.0 F 69 16 156/92 H 99 - My Orders Last 24 Hours: My Active Orders 05/28/20 12:44 EKG Documentation Completion [RC] STAT Peripheral IV Care [RC] . DIRECTED Chest 1V Frontal [CR] Stat Sodium Chloride 0.9% [Saline Flush] 10 ml FLUSH ASDIRECTED PRN Peripheral IV Insertion Adult [OM.PC] Stat 05/28/20 12:50 PRO B-TYPE NATRIUR PEPT,BNPPRO [CHEM] Stat 05/28/20 13:56 Holter Monitor 48 Hours [RC] .PRN - Assessment/Plan Last 24 Hours: My Active Orders 05/28/20 12:44 EKG Documentation Completion [RC] STAT Peripheral IV Care [RC] . DIRECTED Chest 1V Frontal [CR] Stat Sodium Chloride 0.9% [Saline Flush] 10 ml FLUSH ASDIRECTED PRN Peripheral IV Insertion Adult [OM.PC] Stat 05/28/20 12:50 PRO B-TYPE NATRIUR PEPT,BNPPRO [CHEM] Stat 05/28/20 13:56 Holter Monitor 48 Hours [RC] .PRN
== END 2020-05-28 14:34 | disposition home or self-care (01) ==
LOC: JD.ED 12:37
DX: R07.89 Other chest pain (principal); R00.1 Bradycardia, unspecified; E78.00 Pure hypercholesterolemia, unspecified; K21.9 Gastro-esophageal reflux disease without esophagitis; I10 Essential (primary) hypertension; E11.649 Type 2 diabetes mellitus with hypoglycemia without coma; Z88.8 Allergy status to other drugs, medicaments and biological substances; Z88.5 Allergy status to narcotic agent; Z79.4 Long term (current) use of insulin; Z79.899 Other long term (current) drug therapy
CPT/HCPCS: 36415; 71045; 80053; 83735; 83880; 84484; 85025; 85610; 85730; 93005; 93010; 93225; 93226; 99284; 99285-25

== ENCOUNTER 2021-05-25 12:30 | Emergency (ER) | payer MEDICAID, OTHER ==
[2021-05-25 12:56] VITALS: BP 154/97; PULSE 92
[2021-05-25] MEDS ORDERED: Sodium Chloride 0.9% 10 ML Syringe FLUSH PRN (13:05)
--- NOTE | 2021-05-25 13:44 | CR ---
Chest: Frontal view of the chest was obtained. Comparison: Prior chest x-ray of 08/09/19. Patchy areas of increased density are seen within both lung bases as well as within the right upper lung and left midlung. Difficult to exclude mild areas of scattered pneumonia. Please rule out COVID disease. Upper lungs are otherwise clear. Heart size and mediastinum are normal. Prior surgery is seen within the cervical spine. Impression: 1. Patchy areas of mild increased density on both sides of the chest as described above suspicious for mild scattered areas of pneumonia. As mentioned above, please rule out COVID disease. Diagnostic code #3
--- NOTE | 2021-05-25 14:51 | EDM.PDOC ---
ED HPI GENERAL MEDICAL PROBLEM - General Chief Complaint: Respiratory Problem Stated Complaint: COUGH/SOB Time Seen by Provider: 05/25/21 12:57 Source of Information: Reports: Patient, RN Notes Reviewed History Limitations: Reports: No Limitations - History of Present Illness INITIAL COMMENTS - FREE TEXT/NARRATIVE: Patient is a 50-year-old male presenting to the emergency department with complaints of a 6-day history of fever, chills, cough, shortness of breath, body aches, and loss of taste and smell. Reports that his entire family and town are sick with similar symptoms. He lives in [facility]. He is diabetic and also has a history of congestive heart failure. Reports that when his fevers went high, his blood sugars also run high. He has a Dexcom monitor to watch his blood sugars. He denies any chest pain, vomiting, or diarrhea. States his appetite is decreased. He was not vaccinated for Covid. Generalized Pain Score (Numeric/FACES): 6 - Related Data Allergies Allergy/AdvReac Type Severity Reaction Status Date / Time lisinopril AdvReac Severe Tachycardia Verified 05/25/21 12:57 metoclopramide [From Reglan] AdvReac Severe Anxiety Verified 05/25/21 12:57 tramadol AdvReac Severe Headache Verified 05/25/21 12:57 Home Meds: Home Meds ALPRAZolam [Xanax] 0.5 mg PO BID PRN 09/11/17 [History] Insulin Aspart [NovoLOG] 30 unit SQ DAILY PRN 09/11/17 [History] Insulin Detemir [Levemir] 40 unit SQ BEDTIME 09/12/18 [History] amLODIPine Besylate [Norvasc] 5 mg PO BID 09/30/18 [History] Pantoprazole Sodium [Protonix] 40 mg PO DAILY 11/04/18 [History] Fenofibrate Nanocrystallized [Tricor] 145 mg PO DAILY 05/19/19 [History] Hydrocodone/Acetaminophen [HYDROcodone-Acetaminophen 5-325 MG] 1 - 2 each PO Q6HR PRN #20 tablet 05/19/19 [Rx] Metoprolol Succinate [Toprol XL 50mg] 50 mg PO BID 05/19/19 [History] Promethazine HCl/Codeine [Prometh-Codein 6.25-10 mg/5 ml] 5 ml PO QPM PRN #1 bottle 08/09/19 [Rx] dexAMETHasone [Decadron] 6 mg PO DAILY 5 Days #5 tablet 05/25/21 [Rx] Past Medical History - Past Health History Medical/Surgical History: Denies Medical/Surgical History HEENT History: Reports: Impaired Vision Other HEENT History: wears eyeglasses Cardiovascular History: Reports: High Cholesterol, Hypertension Respiratory History: Reports: Bronchitis, Recurrent, Pneumonia, Recurrent Gastrointestinal History: Reports: GERD Genitourinary History: Reports: Renal Calculus Musculoskeletal History: Reports: Back Pain, Chronic Other Musculoskeletal History: herniated disc, disc removed from neck Neurological History: Reports: Concussion, Head Trauma, Migraines Other Neuro History: x5, and skull fx Psychiatric History: Reports: Anxiety Endocrine/Metabolic History: Reports: Diabetes, Type II, Obesity/BMI 30+ Other Endocrine/Metabolic History: borderline diabetic - Past Surgical History HEENT Surgical History: Reports: Tonsillectomy GI Surgical History: Reports: Colonoscopy, EGD, Hernia, Inguinal, Hernia Repair/Other, Other (See Below) Other GI Surgeries/Procedures: polyps removed. Male Surgical History: Reports: Other (See Below) Other Male Surgeries/Procedures: testicular hernia repair, femoral hernia repair Neurological Surgical History: Reports: Discectomy, Other (See Below) Other Neurological Surgeries/Procedures: low back surgery Musculoskeletal Surgical History: Reports: Other (See Below) Other Musculoskeletal Surgeries/Procedures:: discectomy Social & Family History - Family History Cardiac: Reports: CAD, Hypertension Neurological: Reports: CVA Endocrine/Metabolic: Reports: Diabetes, type II - Tobacco Use Tobacco Use Status *Q: Never Tobacco User - Caffeine Use Caffeine Use: Reports: Soda Other Caffeine Use: mountain dew - Recreational Drug Use Recreational Drug Use: No - Living Situation & Occupation Living situation: Reports: , with Family Occupation: Employed ED ROS GENERAL - Review of Systems Review Of Systems: See Below Constitutional: Reports: Fever, Chills, Fatigue, Decreased Appetite HEENT: Reports: No Symptoms Respiratory: Reports: Shortness of Breath, Cough, Sputum Cardiovascular: Reports: Dyspnea on Exertion. Denies: Chest Pain, Lightheadedness, Palpitations Endocrine: Reports: No Symptoms GI/Abdominal: Reports: Decreased Appetite. Denies: Abdominal Pain, Diarrhea, Vomiting : Reports: No Symptoms Musculoskeletal: Reports: Other (Generalized body aches) Skin: Reports: No Symptoms Neurological: Reports: No Symptoms Psychiatric: Reports: No Symptoms Hematologic/Lymphatic: Reports: No Symptoms Immunologic: Reports: No Symptoms ED EXAM, GENERAL - Physical Exam Exam: See Below Exam Limited By: No Limitations General Appearance: Alert, WD/WN, No Apparent Distress Respiratory/Chest: No Respiratory Distress, No Accessory Muscle Use, Chest Non- Tender, Rhonchi (Scattered throughout) Cardiovascular: Normal Peripheral Pulses, Regular Rate, Rhythm, No Edema, No Gallop, No JVD, No Murmur, No Rub GI/Abdominal: Normal Bowel Sounds, Soft, Non-Tender, No Organomegaly, No Distention, No Abnormal Bruit, No Mass Neurological: Alert, Oriented, CN II-XII Intact, Normal Cognition, Normal Gait, Normal Reflexes, No Motor/Sensory Deficits Psychiatric: Normal Affect, Normal Mood Skin Exam: Warm, Dry, Intact, Normal Color, No Rash #1 Interpretation EKG Date: 05/25/21 Time: 13:24 Rhythm: NSR Rate (Beats/Min): 83 [place]: Normal P-Wave: Present QRS: Normal ST-T: Normal QT: Normal Course - Vital Signs Last Recorded V/S: Last Vital Signs Temp 96.9 F 05/25/21 12:49 Pulse 92 05/25/21 12:49 Resp 16 05/25/21 12:49 BP 154/97 H 05/25/21 12:49 Pulse Ox 96 05/25/21 12:49 - Orders/Labs/Meds Orders: Active Orders 24 hr Category Date Time Status Peripheral IV Insertion Adult [OM.PC] Stat Oth 05/25/21 13:05 Ordered Labs: Laboratory Tests 05/25/21 05/25/21 05/25/21 Range/Units 12:50 13:20 13:20 WBC 4.21 L (4.23-9.07) K/mm3 RBC 5.03 (4.63-6.08) M/mm3 Hgb 15.2 (13.7-17.5) gm/dl Hct 45.5 (40.1-51.0) % MCV 90.5 (79.0-92.2) fl MCH 30.2 (25.7-32.2) pg MCHC 33.4 (32.2-35.5) g/dl RDW Std Deviation 42.4 (35.1-43.9) fL Plt Count 218 D (163-337) K/mm3 MPV 10.2 (9.4-12.3) fl Neut % (Auto) 59.0 (34.0-67.9) % Lymph % (Auto) 25.2 (21.8-53.1) % [place] % (Auto) 15.2 H (5.3-12.2) % Eos % (Auto) 0.2 L (0.8-7.0) Baso % (Auto) 0.2 (0.1-1.2) % Neut # (Auto) 2.48 (1.78-5.38) K/mm3 Lymph # (Auto) 1.06 L (1.32-3.57) K/mm3 [place] # (Auto) 0.64 (0.30-0.82) K/mm3 Eos # (Auto) 0.01 L (0.04-0.54) K/mm3 Baso # (Auto) 0.01 (0.01-0.08) K/mm3 D-Dimer, Quantitative 0.92 H (0.19-0.50) mg/L Sodium (136-145) mEq/L Potassium (3.5-5.1) mEq/L Chloride (98-107) mEq/L Carbon Dioxide (21-32) mEq/L Anion Gap (5-15) BUN (7-18) mg/dL Creatinine (0.7-1.3) mg/dL Est Cr Clr Drug Dosing mL/min Estimated GFR (MDRD) (>60) mL/min BUN/Creatinine Ratio (14-18) Glucose (70-99) mg/dL Calcium (8.5-10.1) mg/dL Total Bilirubin (0.2-1.0) mg/dL AST (15-37) U/L ALT (16-63) U/L Alkaline Phosphatase (46-116) U/L Troponin I (0.00-0.056) ng/mL C-Reactive Protein (<1.0) mg/dL NT-Pro-B Natriuret Pep (0-125) pg/mL Total Protein (6.4-8.2) g/dl Albumin (3.4-5.0) g/dl Globulin gm/dL Albumin/Globulin Ratio (1-2) SARS-CoV-2 RNA (KAYLIE) Positive H (NEGATIVE) 05/25/21 05/25/21 Range/Units 13:20 13:20 WBC (4.23-9.07) K/mm3 RBC (4.63-6.08) M/mm3 Hgb (13.7-17.5) gm/dl Hct (40.1-51.0) % MCV (79.0-92.2) fl MCH (25.7-32.2) pg MCHC (32.2-35.5) g/dl RDW Std Deviation (35.1-43.9) fL Plt Count (163-337) K/mm3 MPV (9.4-12.3) fl Neut % (Auto) (34.0-67.9) % Lymph % (Auto) (21.8-53.1) % [place] % (Auto) (5.3-12.2) % Eos % (Auto) (0.8-7.0) Baso % (Auto) (0.1-1.2) % Neut # (Auto) (1.78-5.38) K/mm3 Lymph # (Auto) (1.32-3.57) K/mm3 [place] # (Auto) (0.30-0.82) K/mm3 Eos # (Auto) (0.04-0.54) K/mm3 Baso # (Auto) (0.01-0.08) K/mm3 D-Dimer, Quantitative (0.19-0.50) mg/L Sodium 137 (136-145) mEq/L Potassium 3.6 (3.5-5.1) mEq/L Chloride 103 (98-107) mEq/L Carbon Dioxide 25 (21-32) mEq/L Anion Gap 12.6 (5-15) BUN 13 (7-18) mg/dL Creatinine 1.1 (0.7-1.3) mg/dL Est Cr Clr Drug Dosing 84.80 mL/min Estimated GFR (MDRD) > 60 (>60) mL/min BUN/Creatinine Ratio 11.8 L (14-18) Glucose 125 H (70-99) mg/dL Calcium 8.2 L (8.5-10.1) mg/dL Total Bilirubin 0.3 (0.2-1.0) mg/dL AST 49 H (15-37) U/L ALT 45 (16-63) U/L Alkaline Phosphatase 52 (46-116) U/L Troponin I < 0.017 (0.00-0.056) ng/mL C-Reactive Protein 3.9 H* (<1.0) mg/dL NT-Pro-B Natriuret Pep 64 (0-125) pg/mL Total Protein 7.2 (6.4-8.2) g/dl Albumin 3.5 (3.4-5.0) g/dl Globulin 3.7 gm/dL Albumin/Globulin Ratio 1.0 (1-2) SARS-CoV-2 RNA (KAYLIE) (NEGATIVE) Meds: Medications Discontinued Medications Generic Name Dose Route Start Last Admin Trade Name Freq PRN Reason Stop Dose Admin Sodium Chloride 10 ml 05/25/21 13:05 Sodium Chloride 0.9% 10 Ml Syringe FLUSH ASDIRECTED PRN Keep Vein Open - Re-Assessments/Exams Free Text/Narrative Re-Assessment/Exam: Patient is a 50-year-old male presenting to the emergency department with a 6- day history of Covid symptoms. On exam, he has scattered rhonchi throughout his lung tsang. Exam is otherwise unremarkable. I have ordered blood work, EKG, chest x-ray, and Covid testing. 05/25/21 14:50 Hematology significant for WBC low at 14.21, D-dimer elevated 0.92, CRP 3.9. Troponin is undetectably low. Covid is positive. Low white blood cells, elevated D-dimer, and elevated CRP are to be expected with a diagnosis of Covid. Discussed the option of monoclonal antibody treatment, Regeneron. Patient declined this. We will start him on dexamethasone. Discussed that this will likely cause his blood sugars to be higher, however they should return to normal once treatment is complete. I will send prescription for this [facility] [place] [facility]. Discussed return precautions. He does have a pulse oximeter at home to monitor his oxygen saturations. Discharge instructions as documented. Departure - Departure Time of Disposition: 14:50 Disposition: Home, Self-Care 01 Condition: Good Clinical Impression: COVID-19 - Discharge Information *PRESCRIPTION DRUG MONITORING PROGRAM REVIEWED*: No *COPY OF PRESCRIPTION DRUG MONITORING REPORT IN PATIENT MEL: No Prescriptions: dexAMETHasone [Decadron] 6 mg PO DAILY 5 Days #5 tablet Instructions: COVID-19 Referrals: PCP,None [Primary Care Provider] - Forms: ED Department Discharge Additional Instructions: You were seen in the emergency department today for a 6-day history of Covid symptoms. Work-up included blood work, EKG, chest x-ray, and Covid test. Results of your work-up show that you do have Covid 19. You have mild Covid pneumonia. Blood work was otherwise unremarkable. The option of treatment with monoclonal antibodies, Regeneron, was discussed and you declined. Prescription has been sent for steroid, dexamethasone. Take this as prescribed. Be aware that your blood sugars will likely be higher and require additional insulin while taking this, however they should return to normal after treatment. Continue to monitor your oxygen saturations intermittently at home. If you are maintaining a saturation below 90% or you experience any other new or worsening symptoms of concern, please do not hesitate to return to the emergency department for reevaluation. Sepsis Event Note (ED) - Evaluation Sepsis Screening Result: No Definite Risk - Focused Exam Vital Signs: Vital Signs Temp Pulse Resp BP Pulse Ox 05/25/21 12:49 96.9 F 92 16 154/97 H 96 - My Orders Last 24 Hours: My Active Orders 05/25/21 13:05 Peripheral IV Insertion Adult [OM.PC] Stat - Assessment/Plan Last 24 Hours: My Active Orders 05/25/21 13:05 Peripheral IV Insertion Adult [OM.PC] Stat
== END 2021-05-25 15:00 | disposition home or self-care (01) ==
LOC: JD.ED 12:30
DX: U07.1 COVID-19 (principal); I10 Essential (primary) hypertension; E78.00 Pure hypercholesterolemia, unspecified; K21.9 Gastro-esophageal reflux disease without esophagitis; E66.9 Obesity, unspecified; Z68.41 Body mass index [BMI] 40.0-44.9, adult; E11.9 Type 2 diabetes mellitus without complications; Z79.4 Long term (current) use of insulin; Z79.899 Other long term (current) drug therapy; Z88.5 Allergy status to narcotic agent; Z88.8 Allergy status to other drugs, medicaments and biological substances
CPT/HCPCS: 36415; 71045; 71045-26; 80053; 83880; 84484; 85025; 85379; 86140; 93005; 99285-25; U0002

== ENCOUNTER 2022-05-24 09:04 | Emergency (ER) | payer MEDICAID ==
[2022-05-24 09:44] VITALS: BP 147/93; PULSE 72
[2022-05-24] MEDS ORDERED: Alum Hydrox/Mag Hydrox/Simeth 30 ML, Lidocaine 2% 15 ML PO ONE ×2 (12:51)
[2022-05-24] MEDS ORDERED: Famotidine 20 MG/2 ML SDV IVPUSH ONE (12:54)
[2022-05-24] MEDS ORDERED: Pantoprazole 40 MG Vial IVPUSH ONE (13:39)
[2022-05-24] MEDS ORDERED: Morphine 4 MG/ML Syringe IVPUSH ONE (13:55)
[2022-05-24] MEDS ORDERED: Sucralfate Suspension 1 GM/10 ML Cup PO ONE (14:23)
== END 2022-05-24 15:21 | disposition home or self-care (01) ==
LOC: JD.ED 09:04
DX: K21.9 Gastro-esophageal reflux disease without esophagitis (principal); R10.13 Epigastric pain; I10 Essential (primary) hypertension; E11.9 Type 2 diabetes mellitus without complications; F41.9 Anxiety disorder, unspecified; E66.9 Obesity, unspecified; Z68.34 Body mass index [BMI] 34.0-34.9, adult; Z88.8 Allergy status to other drugs, medicaments and biological substances; Z88.6 Allergy status to analgesic agent; Z79.899 Other long term (current) drug therapy
CPT/HCPCS: 36415; 71045; 80053; 83690; 84484; 85025; 85610; 85730; 93005; 96374; 96375; 99284; A9270; C9113; J2270; J3490

== ENCOUNTER 2022-06-22 17:13 | Emergency (ER) | payer MEDICAID ==
[2022-06-22] MEDS ORDERED: Sodium Chloride 0.9% 10 ML Syringe FLUSH PRN (17:40)
[2022-06-22] MEDS ORDERED: Nitroglycerin 0.4 MG Tab.SL SL ONE (18:20)
[2022-06-22 18:40] LABS: ESTIMATED GFR 82 mL/min (>60)
[2022-06-22] MEDS ORDERED: Naproxen 500 MG Tab PO ONE (18:53)
[2022-06-22] MEDS ORDERED: Iopamidol 755 Mg/ML 100 ML Bottle IVPUSH ONE (18:56)
[2022-06-22] MEDS ORDERED: Sodium Chloride 0.9% 10 ML Syringe FLUSH ONE (18:56)
[2022-06-22] MEDS ORDERED: Sodium Chloride 0.9% 100 ML IV SCH (19:00)
[2022-06-22 20:39] VITALS: BP 117/78; PULSE 106
== END 2022-06-22 20:32 | disposition home or self-care (01) ==
LOC: JD.ED 17:13
DX: J40 Bronchitis, not specified as acute or chronic (principal); E78.00 Pure hypercholesterolemia, unspecified; I10 Essential (primary) hypertension; K21.9 Gastro-esophageal reflux disease without esophagitis; E11.9 Type 2 diabetes mellitus without complications; E66.9 Obesity, unspecified; Z68.34 Body mass index [BMI] 34.0-34.9, adult; Z88.8 Allergy status to other drugs, medicaments and biological substances; Z88.5 Allergy status to narcotic agent; Z86.16 Personal history of COVID-19; Z79.4 Long term (current) use of insulin; Z79.899 Other long term (current) drug therapy
CPT/HCPCS: 36415; 71045; 71275; 80053; 83735; 83880; 84443; 84484; 85025; 85379; 86140; 93005; 99285; A9270; J3490; Q9967; 93010; 99283

== ENCOUNTER 2022-08-19 11:57 | Emergency (ER) | payer MEDICAID ==
[2022-08-19] MEDS ORDERED: HYDROmorphone 1 MG/ML Syringe IM ONE ×2 (13:56→15:49)
[2022-08-19 16:13] VITALS: BP 159/85; PULSE 76
== END 2022-08-19 16:20 | disposition home or self-care (01) ==
LOC: JD.ED 11:57
DX: S70.02XA Contusion of left hip, initial encounter (principal); S20.222A Contusion of left back wall of thorax, initial encounter; I11.0 Hypertensive heart disease with heart failure; I50.9 Heart failure, unspecified; E78.00 Pure hypercholesterolemia, unspecified; E11.9 Type 2 diabetes mellitus without complications; K21.9 Gastro-esophageal reflux disease without esophagitis; E66.9 Obesity, unspecified; Z68.34 Body mass index [BMI] 34.0-34.9, adult; Z88.8 Allergy status to other drugs, medicaments and biological substances; Z79.4 Long term (current) use of insulin; Z79.899 Other long term (current) drug therapy; W10.8XXA Fall (on) (from) other stairs and steps, initial encounter
CPT/HCPCS: 71250; 72131; 73502; 96372; 99284; J1170

== ENCOUNTER 2023-06-11 13:01 | Emergency (ER) | payer MEDICAID ==
[2023-06-11] MEDS ORDERED: Acetaminophen/HYDROcodone 325-5 MG Tab PO ONE (13:45)
[2023-06-11 16:20] VITALS: BP 154/102; PULSE 73
== END 2023-06-11 15:45 | disposition home or self-care (01) ==
LOC: JD.ED 13:01
DX: S82.831A Other fracture of upper and lower end of right fibula, initial encounter for closed fracture (principal); S43.402A Unspecified sprain of left shoulder joint, initial encounter; K21.9 Gastro-esophageal reflux disease without esophagitis; E10.9 Type 1 diabetes mellitus without complications; Z86.16 Personal history of COVID-19; Z79.899 Other long term (current) drug therapy; Z88.8 Allergy status to other drugs, medicaments and biological substances; Z88.5 Allergy status to narcotic agent; W11.XXXA Fall on and from ladder, initial encounter
CPT/HCPCS: 73030; 73610; 82947; 99283; A9270

== ENCOUNTER 2024-11-12 13:27 | Emergency (ER) | payer MEDICAID ==
[2024-11-12] MEDS ORDERED: Sodium Chloride 0.9% 10 ML Syringe FLUSH PRN (14:07)
[2024-11-12 14:46] LABS: BASOPHILS ABSOLUTE AUTO 0.1 K/mm3 (0.0-0.2); BASOPHILS PERCENT AUTO 0.9 % (0.0-1.0); EOSINOPHILS ABSOLUTE AUTO 0.2 K/mm3 (0.0-0.4); EOSINOPHILS PERCENT AUTO 2.3 % (0.0-6.0); HEMATOCRIT 52.1 % (42.0-52.0); HEMOGLOBIN 17.6 gm/dl (14.0-18.0); IMMATURE GRAN ABSOLUTE AUTO 0.06 K/mm3 (0.00-0.05); IMMATURE GRAN PERCENT AUTO 0.6 % (0.0-0.4); LYMPHOCYTES ABSOLUTE AUTO 2.4 K/mm3 (1.0-4.8); MEAN CORPUSCULAR HEMOGLOBIN 29.7 pg (28.0-32.0); MEAN CORPUSCULAR HGB CONC 33.8 g/dl (32.0-36.0); MONOCYTES ABSOLUTE AUTO 0.7 K/mm3 (0.0-0.8); NEUTROPHILS ABSOLUTE AUTO 6.5 K/mm3 (1.8-7.7); NEUTROPHILS PERCENT AUTO 65.2 % (41.0-71.0); PLATELET COUNT,PLT 418 K/mm3 (150-400); RED BLOOD CELL COUNT 5.92 M/mm3 (4.52-5.90); WHITE BLOOD CELL COUNT,WBC 10.03 K/mm3 (3.9-11.3)
[2024-11-12 14:59] LABS: A/G RATIO 1.3 (1-2); ALBUMIN 4.4 g/dl (3.4-5.0); ANION GAP 10.1 (5-15); BILIRUBIN TOTAL 0.7 mg/dL (0.2-1.0); BUN/CREATININE RATIO 11.7 (14-18); CALCIUM 9.3 mg/dL (8.5-10.1); CREATININE 1.2 mg/dL (0.7-1.3); EST CRCL DRUG DOSING (CG) 75.2 mL/min; POTASSIUM,K 4.1 mEq/L (3.5-5.1); PROTEIN TOTAL,TP 7.9 g/dl (6.4-8.2)
[2024-11-12] MEDS: fentaNYL 100 MCG/2 ML SDV IVPUSH ONE ×2 (15:37→17:58)
[2024-11-12] MEDS: hydrALAZINE 20 MG/ML SDV IVPUSH ONE (18:05)
[2024-11-12] MEDS: diphenhydrAMINE 50 MG/ML SDV IVPUSH ONE (18:40)
[2024-11-12 19:16] VITALS: BP 148/90; PULSE 77
== END 2024-11-12 19:00 | disposition home or self-care (01) ==
LOC: JD.ED 13:27
DX: R07.9 Chest pain, unspecified (principal); I10 Essential (primary) hypertension; E10.9 Type 1 diabetes mellitus without complications; K21.9 Gastro-esophageal reflux disease without esophagitis; Z88.8 Allergy status to other drugs, medicaments and biological substances; Z79.899 Other long term (current) drug therapy; Z79.4 Long term (current) use of insulin; Z79.82 Long term (current) use of aspirin; Z86.16 Personal history of COVID-19
CPT/HCPCS: 36415; 70450; 71045; 80053; 83690; 84484; 85025; 93005; 96374; 96375; 96376; 99285; J0360; J1200; J3010; 93010